=== PATIENT | male | born 1940 | race Caucasian/White ===

== ENCOUNTER 2016-11-11 07:34 | Day surgery (SDC) | payer MEDICARE ==
[~2016-11-11 07:34] MED LIST: Cefuroxime 10 MG/ML SYRINGE EYELF SCH; Lidocaine 1% PF 2 ML SDV INJECT SCH; Pilocarpine 4% Ophth Soln 15 ML Bot EYELF SCH
--- NOTE | 2016-11-11 09:20 | PCM.PREANE ---
Preanesthetic Assessment - Procedure Proposed Procedure: Cataract extraction left eye. - Anesthesia/Transfusion/Family Hx Anesthesia History: Prior Anesthesia Without Reaction Family History of Anesthesia Reaction: No Transfusion History: No Prior Transfusion(s) Intubation History: Unknown - Review of Systems General: No Symptoms Pulmonary: No Symptoms (Patient does not remember the last time he used him inhaler.) Cardiovascular: No Symptoms (NSTEMI) Gastrointestinal: No Symptoms Neurological: No Symptoms Other: Reports: None - Physical Assessment NPO Status Date: 11/10/16 NPO Status Time: 22:00 Pulse: 64 O2 Sat by Pulse Oximetry: 100 Blood Pressure: 103/69 Height: 1.73 m Weight: 72.575 kg ASA Class: 2 Mental Status: Alert & Oriented x3 Dentition: Reports: Normal Dentition, Caries Thyro-Mental Finger Breadths: 3 Mouth Opening Finger Breadths: 3 ROM/Head Extension: Full Lungs: Clear to Auscultation, Normal Respiratory Effort Cardiovascular: Regular Rate, Regular Rhythm - Allergies Allergies/Adverse Reactions: Allergies Allergy/AdvReac Type Severity Reaction Status Date / Time No Known Allergies Allergy Verified 11/10/16 14:02 - Anesthesia Plan Beta Naye: Metoprolol Med Last Dose Date: 11/10/16 Med Last Dose Time: 16:00 - Acknowledgements Anesthesia Type Planned: MAC Pt an Appropriate Candidate for the Planned Anesthesia: Yes Alternatives and Risks of Anesthesia Discussed w Pt/Guardian: Yes Pt/Guardian Understands and Agrees with Anesthesia Plan: Yes PreAnesthesia Questionnaire - Past Health History Medical/Surgical History: Denies Medical/Surgical History Cardiovascular History: Reports: None, CAD, [place] (NSTEMI), Stents (Stents in 2013. ) - Past Surgical History Cardiovascular Surgical History: Reports: Coronary Artery Stent (2013) Other Cardiovascular Surgeries/Procedures: while triageing pt noted that pt ht rate was bouncing around, placed pt on cardiac n\ - SUBSTANCE USE Smoking Status *Q: Current Every Day Smoker Tobacco Use Within Last Twelve Months: Cigarettes Recreational Drug Use History: No - HOME MEDS Home Medications: Home Meds Aspirin [Children's Aspirin] 81 mg PO DAILY 11/10/16 [History] Finasteride 5 mg PO DAILY 11/10/16 [History] Fluticasone Propionate [Flovent HFA 220 MCG] 1 puff INH ASDIRECTED 11/10/16 [ History] Metoprolol Succinate 100 mg PO DAILY 11/10/16 [History] - CURRENT (IN HOUSE) MEDS Current Meds: Current Medications Brimonidine Tartrate (Alphagan 0.2% Ophth Soln) 0 ml EYELF ASDIRECTED BRANDIE Stop: 11/11/16 18:00 Cefuroxime Sodium (Zinacef) 0 mg EYELF ASDIRECTED BRANDIE Stop: 11/11/16 18:00 Lidocaine HCl (Xylocaine-Mpf 1%) 1 ml INJECT ASDIRECTED BRANDIE Stop: 11/11/16 18:00 Phenylephrine HCl (Yaya-Synephrine 2.5% Ophth Soln) 0 ml EYELF ASDIRECTED BRANDIE Stop: 11/11/16 18:00 Pilocarpine HCl (Pilocar 4% Ophth Soln) 0 ml EYELF ASDIRECTED BRANDIE Stop: 11/11/16 18:00 Polymyxin/Trimethoprim Sulfate (Polytrim Ophth Soln) 0 ml EYELF ASDIRECTED BRANDIE Stop: 11/11/16 18:00 Tetracaine HCl (Tetracaine 0.5% Steri-Unit Violet) 0 ml EYELF ASDIRECTED BRANDIE Stop: 11/11/16 18:00 Tropicamide (Mydriacyl 1% Ophth Soln) 0 ml EYELF ASDIRECTED BRANDIE Stop: 11/11/16 18:00
[2016-11-11] MEDS: Polymyxin B/Trimethoprim 10 ML Bottle EYELF SCH ×3 (09:28→11:16)
[2016-11-11] MEDS: Brimonidine 0.2% Ophth Soln 5 ML Bottle EYELF SCH ×3 (09:35→11:15)
[2016-11-11] MEDS: Phenylephrine 2.5% Ophth Soln 2 ML Bot EYELF SCH ×5 (09:40→10:58)
[2016-11-11] MEDS: Tetracaine HCl/PF 0.5% 4 ML Bottle EYELF SCH ×2 (10:31→11:07)
--- NOTE | 2016-11-11 11:17 | PCM48HPAN ---
Post Anesthesia Note - EVALUATION WITHIN 48HRS OF ANESTHETIC Vital Signs in Normal Range: Yes Patient Participated in Evaluation: Yes Respiratory Function Stable: Yes Airway Patent: Yes Cardiovascular Function Stable: Yes Hydration Status Stable: Yes Pain Control Satisfactory: Yes Nausea and Vomiting Control Satisfactory: Yes Mental Status Recovered: Yes
[2016-11-11 11:32] VITALS: BP 123/70
== END 2016-11-11 11:27 | disposition home or self-care (01) ==
LOC: JD.SDS 07:34
PROVIDERS: ATTEND Ophthalmology
PROC: 08RK3JZ Replacement of Left Lens with Synthetic Substitute, Percutaneous Approach (ICD-10-PCS; principal; 2016-11-11)
DX: H25.812 Combined forms of age-related cataract, left eye (principal); Z95.5 Presence of coronary angioplasty implant and graft; Z98.890 Other specified postprocedural states; Z79.82 Long term (current) use of aspirin; Z79.899 Other long term (current) drug therapy; Z79.51 Long term (current) use of inhaled steroids
CPT/HCPCS: 66984; A9270; J0697; C1780

== ENCOUNTER 2016-12-09 08:42 | Day surgery (SDC) | payer MEDICARE ==
[~2016-12-09 08:42] MED LIST changes: -Cefuroxime 10 MG/ML SYRINGE EYELF SCH; +Cefuroxime 10 MG/ML SYRINGE EYERT SCH; -Pilocarpine 4% Ophth Soln 15 ML Bot EYELF SCH; +Pilocarpine 4% Ophth Soln 15 ML Bot EYERT SCH
[2016-12-09] MEDS: Polymyxin B/Trimethoprim 10 ML Bottle EYERT SCH ×3 (10:00→11:39)
[2016-12-09] MEDS: Brimonidine 0.2% Ophth Soln 5 ML Bottle EYERT SCH ×3 (10:06→11:39)
[2016-12-09] MEDS: Phenylephrine 2.5% Ophth Soln 2 ML Bot EYERT SCH ×5 (10:10→11:23)
--- NOTE | 2016-12-09 10:41 | PCM.PREANE ---
Preanesthetic Assessment - Procedure Proposed Procedure: right eye cataract extraction with IOL - Anesthesia/Transfusion/Family Hx Anesthesia History: Prior Anesthesia Without Reaction Family History of Anesthesia Reaction: No Transfusion History: No Prior Transfusion(s) Intubation History: Unknown - Review of Systems General: No Symptoms Pulmonary: No Symptoms Cardiovascular: Other (heart stent 2 years ago) Gastrointestinal: No Symptoms Neurological: No Symptoms Other: Reports: None - Physical Assessment NPO Status Date: 12/08/16 NPO Status Time: 19:00 O2 Sat by Pulse Oximetry: 100 Respiratory Rate: 16 Vital Signs: Last Vital Signs Temp 36.5 C 12/09/16 09:55 Pulse 63 12/09/16 09:55 Resp 16 12/09/16 09:55 BP 131/72 12/09/16 09:55 Pulse Ox 100 12/09/16 09:55 Weight: 72.575 kg ASA Class: 2 Airway Class: Mallampati = 1 Dentition: Reports: Normal Dentition Thyro-Mental Finger Breadths: 3 Mouth Opening Finger Breadths: 3 ROM/Head Extension: Full Lungs: Clear to Auscultation, Normal Respiratory Effort Cardiovascular: Regular Rate, Regular Rhythm - Allergies Allergies/Adverse Reactions: Allergies Allergy/AdvReac Type Severity Reaction Status Date / Time No Known Allergies Allergy Verified 12/08/16 14:32 - Blood Blood Available: No Product(s) Available: None - Anesthesia Plan Pre-Op Medication Ordered: None - Acknowledgements Anesthesia Type Planned: MAC Pt an Appropriate Candidate for the Planned Anesthesia: Yes Alternatives and Risks of Anesthesia Discussed w Pt/Guardian: Yes Pt/Guardian Understands and Agrees with Anesthesia Plan: Yes PreAnesthesia Questionnaire - Past Health History Medical/Surgical History: Denies Medical/Surgical History Cardiovascular History: Reports: None, CAD, [place] (NSTEMI), Stents (Stents in 2013. ) - Past Surgical History Cardiovascular Surgical History: Reports: Coronary Artery Stent (2013) Other Cardiovascular Surgeries/Procedures: while triageing pt noted that pt ht rate was bouncing around, placed pt on cardiac n\ - SUBSTANCE USE Smoking Status *Q: Current Every Day Smoker (0.5ppd for 40 years) Tobacco Use Within Last Twelve Months: Cigarettes Second Hand Smoke Exposure: No Recreational Drug Use History: No - HOME MEDS Home Medications: Home Meds Aspirin [Children's Aspirin] 81 mg PO DAILY 11/10/16 [History] Finasteride 5 mg PO DAILY 11/10/16 [History] Fluticasone Propionate [Flovent HFA 220 MCG] 1 puff INH ASDIRECTED 11/10/16 [ History] Metoprolol Succinate 100 mg PO DAILY 11/10/16 [History] - CURRENT (IN HOUSE) MEDS Current Meds: Current Medications Brimonidine Tartrate (Alphagan 0.2% Ophth Soln) 0 ml EYERT ASDIRECTED BRANDIE Stop: 12/09/16 18:00 Last Admin: 12/09/16 10:06 Dose: 1 drop Cefuroxime Sodium (Zinacef) 0 mg EYERT ASDIRECTED BRANDIE Stop: 12/09/16 18:00 Lidocaine HCl (Xylocaine-Mpf 1%) 1 ml INJECT ASDIRECTED BRANDIE Stop: 12/09/16 18:00 Phenylephrine HCl (Yaya-Synephrine 2.5% Ophth Soln) 0 ml EYERT ASDIRECTED BRANDIE Stop: 12/09/16 18:00 Last Admin: 12/09/16 10:30 Dose: 1 drop Pilocarpine HCl (Pilocar 4% Ophth Soln) 0 ml EYERT ASDIRECTED BRANDIE Stop: 12/09/16 18:00 Polymyxin/Trimethoprim Sulfate (Polytrim Ophth Soln) 0 ml EYERT ASDIRECTED BRANDIE Stop: 12/09/16 18:00 Last Admin: 12/09/16 10:00 Dose: 1 drop Tetracaine HCl (Tetracaine 0.5% Steri-Unit Violet) 0 ml EYERT ASDIRECTED BRANDIE Stop: 12/09/16 18:00 Tropicamide (Mydriacyl 1% Ophth Soln) 0 ml EYERT ASDIRECTED BRANDIE Stop: 12/09/16 18:00 Last Admin: 12/09/16 10:25 Dose: 1 drop
[2016-12-09] MEDS: Tetracaine HCl/PF 0.5% 4 ML Bottle EYERT SCH ×2 (11:08→11:32)
[2016-12-09 11:50] VITALS: BP 133/78
== END 2016-12-09 11:48 | disposition home or self-care (01) ==
LOC: JD.SDS 08:42
PROVIDERS: ATTEND Ophthalmology
DX: H25.811 Combined forms of age-related cataract, right eye (principal); H52.31 Anisometropia; H35.3131 Nonexudative age-related macular degeneration, bilateral, early dry stage; H35.363 Drusen (degenerative) of macula, bilateral; I25.10 Atherosclerotic heart disease of native coronary artery without angina pectoris; I25.2 Old myocardial infarction; F17.210 Nicotine dependence, cigarettes, uncomplicated; Z98.42 Cataract extraction status, left eye; Z96.1 Presence of intraocular lens; Z95.5 Presence of coronary angioplasty implant and graft; Z79.82 Long term (current) use of aspirin; Z79.899 Other long term (current) drug therapy
CPT/HCPCS: 66984; A9270; C1780; J0697

== ENCOUNTER 2020-04-01 17:28 | Inpatient (IN) | payer MEDICARE ==
[2020-04-01] MEDS ORDERED: Diltiazem 50 MG/10 ML SDV ONE (17:38)
[2020-04-01] MEDS ORDERED: Sodium Chloride 0.9% 10 ML Syringe FLUSH PRN (17:39)
[2020-04-01] MEDS ORDERED: Diltiazem 50 MG/10 ML SDV IVPUSH ONE (17:40)
[2020-04-01] MEDS ORDERED: Sodium Chloride 0.9% 1,000 ML IV SCH (17:45)
--- NOTE | 2020-04-01 17:47 | EDM.PDOC ---
ED HPI GENERAL MEDICAL PROBLEM - General Chief Complaint: Cardiovascular Problem Stated Complaint: [facility] Time Seen by Provider: 04/01/20 17:39 Source of Information: Reports: Patient, EMS History Limitations: Reports: No Limitations - History of Present Illness INITIAL COMMENTS - FREE TEXT/NARRATIVE: The patient presents by [facility] for tachycardia. The patient said this all started about 4 days ago. He said he could feel his heart racing but tonight it got worse when he took a shower. EMS had his heart rate as high as 210. He was in the 160s when he arrived here. He has no chest pain. He had a cough for about 4 days. He feels a little short of breath. He has a history of GA with stent a few years ago. He has no fever, chills, abdominal pain, nausea or vomiting. Onset: Gradual Duration: Day(s): (4) Severity: Moderate Improves with: Reports: None Worsens with: Reports: None Associated Symptoms: Reports: Cough, Shortness of Breath. Denies: Chest Pain, Fever/Chills, Headaches, Nausea/Vomiting - Related Data Allergies Allergy/AdvReac Type Severity Reaction Status Date / Time No Known Allergies Allergy Verified 04/01/20 17:47 Home Meds: Home Meds Aspirin [Children's Aspirin] 81 mg PO DAILY 11/10/16 [History] Finasteride 5 mg PO DAILY 11/10/16 [History] Fluticasone Propionate [Flovent HFA 220 MCG] 1 puff INH ASDIRECTED 11/10/16 [History] Metoprolol Succinate 100 mg PO DAILY 11/10/16 [History] Past Medical History - Past Health History Medical/Surgical History: Denies Medical/Surgical History Cardiovascular History: Reports: None, CAD, [place] (NSTEMI), Stents (Stents in 2013.) - Past Surgical History Cardiovascular Surgical History: Reports: Coronary Artery Stent (2013) Other Cardiovascular Surgeries/Procedures: while triageing pt noted that pt ht rate was bouncing around, placed pt on cardiac n\ ED ROS GENERAL - Review of Systems Review Of Systems: See Below Constitutional: Reports: No Symptoms HEENT: Reports: No Symptoms Respiratory: Reports: Shortness of Breath, Cough Cardiovascular: Reports: Palpitations. Denies: Chest Pain Endocrine: Reports: No Symptoms GI/Abdominal: Reports: No Symptoms : Reports: No Symptoms Musculoskeletal: Reports: No Symptoms ED EXAM, GENERAL - Physical Exam Exam: See Below Exam Limited By: No Limitations General Appearance: Alert, No Apparent Distress Ears: Normal External Exam Nose: Normal Inspection Head: Atraumatic, Normocephalic Neck: Normal Inspection Respiratory/Chest: No Respiratory Distress, Lungs Clear, Normal Breath Sounds Cardiovascular: No Edema, No Murmur, Tachycardia GI/Abdominal: Soft, Non-Tender, No Organomegaly, No Mass Back Exam: Normal Inspection Extremities: Normal Inspection #1 Interpretation EKG Date: 04/01/20 Time: 17:40 Rhythm: A-Fib Rate (Beats/Min): 170 [place]: RAD-Right [place] Deviation P-Wave: Absent QRS: Normal ST-T: Depressed (lalteral leads due to rate) QT: Prolonged EKG Interpretation Comments: PVC Course - Vital Signs Last Recorded V/S: Last Vital Signs Temp 97 F 04/01/20 17:33 Pulse 133 H 04/01/20 18:30 Resp 20 04/01/20 18:30 BP 100/88 04/01/20 18:30 Pulse Ox 97 04/01/20 18:30 - Orders/Labs/Meds Orders: Active Orders 24 hr Category Date Time Status Cardiac Monitoring [RC] . DIRECTED Care 04/01/20 17:39 Active EKG Documentation Completion [RC] STAT Care 04/01/20 17:40 Active Oxygen Therapy [RC] PRN Care 04/01/20 17:39 Active Peripheral IV Care [RC] . DIRECTED Care 04/01/20 17:40 Active Chest 1V Frontal [CR] Stat Exams 04/01/20 17:40 Taken CULTURE BLOOD [BC] Stat Lab 04/01/20 18:37 Ordered CULTURE BLOOD [BC] Stat Lab 04/01/20 18:37 Ordered LACTIC ACID [CHEM] Stat Lab 04/01/20 18:37 Ordered Diltiazem [Cardizem] 100 mg Med 04/01/20 17:45 Active Sodium Chloride 0.9% [Normal Saline] 100 ml IV TITRATE Sodium Chloride 0.9% [Normal Saline] 1,000 ml Med 04/01/20 17:45 Active IV ASDIRECTED Sodium Chloride 0.9% [Saline Flush] Med 04/01/20 17:39 Active 10 ml FLUSH ASDIRECTED PRN cefTRIAXone [Rocephin] 2 gm Med 04/01/20 18:40 Active Sodium Chloride 0.9% [Normal Saline] 100 ml IV ONETIME Blood Culture x2 Reflex Set [OM.PC] Stat Oth 04/01/20 18:37 Ordered Peripheral IV Insertion Adult [OM.PC] Stat Oth 04/01/20 17:39 Ordered Medication Orders Diltiazem HCl 100 mg/ Sodium (Chloride) 100 mls @ 10 mls/hr IV TITRATE BRANDIE; Protocol Last Titration: 04/01/20 18:30 Dose: 5 mg/hr, 5 mls/hr Documented by: Admin: 04/01/20 17:48 Dose: 10 mg/hr, 10 mls/hr Documented by: ANASTASIYA Sodium Chloride (Normal Saline) 1,000 mls @ 125 mls/hr IV ASDIRECTED BRANDIE Last Infusion: 04/01/20 18:30 Dose: 999 mls/hr Documented by: Admin: 04/01/20 17:52 Dose: 125 mls/hr Documented by: ANASTASIYA Ceftriaxone Sodium 2 gm/ (Sodium Chloride) 100 mls @ 200 mls/hr IV ONETIME ONE Stop: 04/01/20 19:09 Sodium Chloride (Saline Flush) 10 ml FLUSH ASDIRECTED PRN PRN Reason: Keep Vein Open Last Admin: 04/01/20 17:52 Dose: 10 ml Documented by: ANASTASIYA Labs: Laboratory Tests 04/01/20 04/01/20 04/01/20 Range/Units 17:30 17:55 18:10 WBC 6.19 (4.23-9.07) K/mm3 RBC 5.42 (4.63-6.08) M/mm3 Hgb 16.6 D (13.7-17.5) gm/dl Hct 52.2 H (40.1-51.0) % MCV 96.3 H D (79.0-92.2) fl MCH 30.6 (25.7-32.2) pg MCHC 31.8 L (32.2-35.5) g/dl RDW Std Deviation 70.1 H (35.1-43.9) fL Plt Count 128 L (163-337) K/mm3 Neut % (Auto) 53.5 (34.0-67.9) % Lymph % (Auto) 35.1 (21.8-53.1) % [place] % (Auto) 8.9 (5.3-12.2) % Eos % (Auto) 1.0 (0.8-7.0) Baso % (Auto) 1.0 (0.1-1.2) % Neut # (Auto) 0.50 L (1.78-5.38) K/mm3 Lymph # (Auto) 2.17 (1.32-3.57) K/mm3 [place] # (Auto) 0.55 (0.30-0.82) K/mm3 Eos # (Auto) 0.06 (0.04-0.54) K/mm3 Baso # (Auto) 0.06 (0.01-0.08) K/mm3 Manual Slide Review Not Reportable Sodium (136-145) mEq/L Potassium (3.5-5.1) mEq/L Chloride (98-107) mEq/L Carbon Dioxide (21-32) mEq/L Anion Gap (5-15) BUN (7-18) mg/dL Creatinine (0.7-1.3) mg/dL Est Cr Clr Drug Dosing mL/min Estimated GFR (MDRD) (>60) mL/min BUN/Creatinine Ratio (14-18) Glucose (83-115) mg/dL Calcium (8.5-10.1) mg/dL Magnesium (1.8-2.4) mg/dl Total Bilirubin (0.2-1.0) mg/dL AST (15-37) U/L ALT (16-63) U/L Alkaline Phosphatase (46-116) U/L Troponin I (0.00-0.056) ng/mL C-Reactive Protein (<1.0) mg/dL Total Protein (6.4-8.2) g/dl Albumin (3.4-5.0) g/dl Globulin gm/dL Albumin/Globulin Ratio (1-2) TSH 3rd Generation (0.358-3.74) uIU/mL SARS-CoV-2 RNA (CHAU) Negative (NEGATIVE) 04/01/20 04/01/20 Range/Units 18:10 18:10 WBC (4.23-9.07) K/mm3 RBC (4.63-6.08) M/mm3 Hgb (13.7-17.5) gm/dl Hct (40.1-51.0) % MCV (79.0-92.2) fl MCH (25.7-32.2) pg MCHC (32.2-35.5) g/dl RDW Std Deviation (35.1-43.9) fL Plt Count (163-337) K/mm3 Neut % (Auto) (34.0-67.9) % Lymph % (Auto) (21.8-53.1) % [place] % (Auto) (5.3-12.2) % Eos % (Auto) (0.8-7.0) Baso % (Auto) (0.1-1.2) % Neut # (Auto) (1.78-5.38) K/mm3 Lymph # (Auto) (1.32-3.57) K/mm3 [place] # (Auto) (0.30-0.82) K/mm3 Eos # (Auto) (0.04-0.54) K/mm3 Baso # (Auto) (0.01-0.08) K/mm3 Manual Slide Review Sodium 140 (136-145) mEq/L Potassium 4.4 (3.5-5.1) mEq/L Chloride 103 (98-107) mEq/L Carbon Dioxide 20 L (21-32) mEq/L Anion Gap 21.4 H (5-15) BUN 36 H (7-18) mg/dL Creatinine 1.5 H (0.7-1.3) mg/dL Est Cr Clr Drug Dosing 37.76 mL/min Estimated GFR (MDRD) 45 (>60) mL/min BUN/Creatinine Ratio 24.0 H (14-18) Glucose 144 H (83-115) mg/dL Calcium 9.1 (8.5-10.1) mg/dL Magnesium 2.1 (1.8-2.4) mg/dl Total Bilirubin 2.5 H (0.2-1.0) mg/dL AST 52 H (15-37) U/L ALT 72 H (16-63) U/L Alkaline Phosphatase 116 (46-116) U/L Troponin I 0.022 (0.00-0.056) ng/mL C-Reactive Protein 1.4 H* (<1.0) mg/dL Total Protein 6.7 (6.4-8.2) g/dl Albumin 3.5 (3.4-5.0) g/dl Globulin 3.2 gm/dL Albumin/Globulin Ratio 1.1 (1-2) TSH 3rd Generation 3.839 H (0.358-3.74) uIU/mL SARS-CoV-2 RNA ([facility]) (NEGATIVE) Meds: Medications Generic Name Dose Route Start Last Admin Trade Name Freq PRN Reason Stop Dose Admin Diltiazem HCl 100 mg/ Sodium 100 mls @ 10 mls/hr 04/01/20 17:45 04/01/20 18:30 Chloride IV 5 mg/hr TITRATE BRANDIE 5 mls/hr Titration Protocol 10 MG/HR Sodium Chloride 1,000 mls @ 125 mls/hr 04/01/20 17:45 04/01/20 18:30 Normal Saline IV 999 mls/hr ASDIRECTED BRANDIE Infusion Ceftriaxone Sodium 2 gm/ 100 mls @ 200 mls/hr 04/01/20 18:40 Sodium Chloride IV 04/01/20 19:09 ONETIME ONE Sodium Chloride 10 ml 04/01/20 17:39 04/01/20 17:52 Saline Flush FLUSH 10 ml ASDIRECTED PRN Administration Keep Vein Open Discontinued Medications Generic Name Dose Route Start Last Admin Trade Name Freq PRN Reason Stop Dose Admin Diltiazem HCl Confirm 04/01/20 17:38 04/01/20 17:52 Cardizem Administered 04/01/20 17:39 Not Given Dose 50 mg .ROUTE .STK-MED ONE Diltiazem HCl 10 mg 04/01/20 17:40 04/01/20 17:42 Cardizem IVPUSH 04/01/20 17:41 10 mg ONETIME ONE Administration - Re-Assessments/Exams Free Text/Narrative Re-Assessment/Exam: 04/01/20 17:48 I ordered an IV NS at 125mL/hr, cardizem bolus of 10mg IV, cardizem drip at 10mg/hr, EKG, CXR labs and COVID 19. His EKG shows atrial fibrillation at a rate of 170 with no acute changes. 04/01/20 18:41 His CXR I thought had an infiltrate in the right infrahilar area. I had [facility] look at it and they felt the right infrahilar findings are felt to be related to crowding of bronchovascular structures, however developing airspace disease should be entertained in the appropriate clinical setting. The patient said about a week ago he started with nausea and vomiting and 4 days ago he started coughing. The cough is productive. He has not been able to eat or drink anything for days. His heart rate did come down some to the 140s but his BP did go to 90 systolic. I ordered a NS bolus and lower the cardizem drip to 5mg/hr. I have ordered lactic acid, blood cultures and rocephin 2 grams. I feel he has pneumonia in the right perihilar region. 04/01/20 19:03 His CBC looks good. His anion gap was elevated at 21.14. His creatinine was elevated at 1.5. His glucose was 144. His total bili was 2.5. His AST was elevated at 52. His ALT was elevated at 72. His troponin was negative. His CRP is elevated at 1.4. His TSH was elevated at 3.839. His COVID 19 is negative. I feel he has pneumonia and new onset atrial fibrillation. I called Dr Oseguera our hospitalist and he agreed to the admission. Departure - Departure Time of Disposition: 19:05 Disposition: Admitted As Inpatient 67 Condition: Fair Clinical Impression: Atrial fibrillation with RVR Pneumonia Qualifiers: Pneumonia type: due to unspecified organism Laterality: right Lung location: middle lobe of lung Qualified Code(s): J18.9 - Pneumonia, unspecified organism Referrals: Irina Willett [employer] [Primary Care Provider] - Forms: ED Department Discharge Sepsis Event Note (ED) - Evaluation Sepsis Screening Result: No Definite Risk - Focused Exam Vital Signs: Vital Signs Temp Pulse Resp BP Pulse Ox 04/01/20 18:30 133 H 20 100/88 97 04/01/20 17:33 97 F 166 H 23 H 114/83 - My Orders Last 24 Hours: My Active Orders 04/01/20 17:39 Cardiac Monitoring [RC] . DIRECTED Oxygen Therapy [RC] PRN Sodium Chloride 0.9% [Saline Flush] 10 ml FLUSH ASDIRECTED PRN Peripheral IV Insertion Adult [OM.PC] Stat 04/01/20 17:40 EKG Documentation Completion [RC] STAT Peripheral IV Care [RC] . DIRECTED Chest 1V Frontal [CR] Stat 04/01/20 17:45 Diltiazem [Cardizem] 100 mg Sodium Chloride 0.9% [Normal Saline] 100 ml IV TITRATE Sodium Chloride 0.9% [Normal Saline] 1,000 ml IV ASDIRECTED 04/01/20 18:37 CULTURE BLOOD [BC] Stat CULTURE BLOOD [BC] Stat LACTIC ACID [CHEM] Stat Blood Culture x2 Reflex Set [OM.PC] Stat 04/01/20 18:40 cefTRIAXone [Rocephin] 2 gm Sodium Chloride 0.9% [Normal Saline] 100 ml IV ONETIME - Assessment/Plan Last 24 Hours: My Active Orders 04/01/20 17:39 Cardiac Monitoring [RC] . DIRECTED Oxygen Therapy [RC] PRN Sodium Chloride 0.9% [Saline Flush] 10 ml FLUSH ASDIRECTED PRN Peripheral IV Insertion Adult [OM.PC] Stat 04/01/20 17:40 EKG Documentation Completion [RC] STAT Peripheral IV Care [RC] . DIRECTED Chest 1V Frontal [CR] Stat 04/01/20 17:45 Diltiazem [Cardizem] 100 mg Sodium Chloride 0.9% [Normal Saline] 100 ml IV TITRATE Sodium Chloride 0.9% [Normal Saline] 1,000 ml IV ASDIRECTED 04/01/20 18:37 CULTURE BLOOD [BC] Stat CULTURE BLOOD [BC] Stat LACTIC ACID [CHEM] Stat Blood Culture x2 Reflex Set [OM.PC] Stat 04/01/20 18:40 cefTRIAXone [Rocephin] 2 gm Sodium Chloride 0.9% [Normal Saline] 100 ml IV ONETIME
[2020-04-01] MEDS: Diltiazem 100 MG in Sodium Chloride 0.9% 100 ML IV SCH (17:48)
[2020-04-01] MEDS ORDERED: cefTRIAXone 2 GM in Sodium Chloride 0.9% 100 ML IV ONE (18:40)
[2020-04-01 18:43] LABS: CORONAVIRUS COVID-19 NAA NEGATIVE (NEGATIVE)
[2020-04-01] MEDS ORDERED: Docusate Sodium 100 MG Cap PO PRN (19:37)
[2020-04-01] MEDS ORDERED: Promethazine 12.5 MG in Sodium Chloride 0.9% 50 ML IV PRN (19:37)
[2020-04-01] MEDS ORDERED: Morphine 2 MG/ML SYRINGE IVPUSH PRN (19:37)
[2020-04-01] MEDS ORDERED: Acetaminophen 325 MG Tab PO PRN (19:37)
[2020-04-01] MEDS ORDERED: oxyCODONE 5 MG Tab PO PRN (19:37)
[2020-04-01] MEDS ORDERED: Albuterol/Ipratropium 3.0-0.5 MG/3 ML Neb Soln NEB PRN (19:37)
[2020-04-01] MEDS ORDERED: Lactated Ringers 1,000 ML IV SCH (19:45)
[2020-04-01] MEDS ORDERED: hydrALAZINE 20 MG/ML SDV IVPUSH PRN (19:55)
--- NOTE | 2020-04-01 20:04 | PCM.HP.2 ---
H&P History of Present Illness - General Date of Service: 04/01/20 Admit Problem/Dx: Admission Diagnosis/Problem Admission Diagnosis/Problem Atrial fibrillation Source of Information: Patient - History of Present Illness Initial Comments - Free Text/Narative: She is a 79-year-old male with a history of CAD status post stenting in 2014 who was brought to the ER due to heart racing and shortness of breath for 4 days. As per patient, he has been feeling his heart beating too fast, coughing with a small amount of light yellowish sputum and having shortness of breath over the past 4 days. Patient called EMS who found patient had tachycardia, 210. In the ER, his heart rate was 160. Otherwise the patient denied headaches, dizziness, nausea, vomiting, fever, chills, chest pain, abdominal pain or dysuria. Chest x-ray showed cardiomegaly and right side of the bronchitis. Lactic acid 3.6. IV resuscitation and diltiazem drip were initiated. Onset of Symptoms: Reports: Gradual Duration of Symptoms: Reports: Day(s): Severity: Severe Associated Symptoms: Reports: Cough - Related Data Allergies/Adverse Reactions: Allergies Allergy/AdvReac Type Severity Reaction Status Date / Time No Known Allergies Allergy Verified 04/01/20 22:54 Home Medications: Home Meds Aspirin 325 mg PO DAILY 04/01/20 [History] Past Medical History - Past Health History Medical/Surgical History: Denies Medical/Surgical History Cardiovascular History: Reports: None, CAD, [place], Stents - Past Surgical History Cardiovascular Surgical History: Reports: Coronary Artery Stent (2013) Other Cardiovascular Surgeries/Procedures: while triageing pt noted that pt ht rate was bouncing around, placed pt on cardiac n\ Social & Family History - Tobacco Use Tobacco Use Status *Q: Current Every Day Tobacco User Years of Tobacco use: 20 Packs/Tins Daily: 1 - Caffeine Use Caffeine Use: Reports: Coffee - Recreational Drug Use Recreational Drug Use: No H&P Review of Systems - Review of Systems: Review Of Systems: See Below (Positive for heart racing, cough and shortness of breath. All other systems were reviewed and negative.) Exam - Exam Exam: See Below - Vital Signs Vital Signs: Last Vital Signs Temp 36.1 C 04/01/20 17:33 Pulse 150 H 04/01/20 19:45 Resp 20 04/01/20 19:35 BP 110/78 02/07/21 19:35 Pulse Ox 98 04/01/20 19:35 Weight: 65.771 kg - Exam Physical Exam Comments:: Physical Exam: General: No acute distress HEENT: Conjunctiva Clear, EOMI, Mucosa Moist & [place] Neck: Supple, Trachea Midline, NO JVD Lungs: Diminished breathing sounds, normal Respiratory Effort Cardiovascular: Regular Rate, Regular Rhythm GI/Abdominal Exam: Normal Bowel Sounds, Soft, Non-Tender, No Organomegaly, No Distention, No Abnormal Bruit, No Mass Extremities: Normal Inspection, Non-Tender, No Pedal Edema, Normal Capillary Refill Skin: Warm, Dry, Intact Neurology: A+O x 3, no focal neurological deficits Psychiatric: Normal Mood - Patient Data Lab Results Last 24 hrs: Laboratory Results - last 24 hr 04/01/20 04/01/20 04/01/20 Range/Units 17:30 17:55 18:10 WBC 6.19 (4.23-9.07) K/mm3 RBC 5.42 (4.63-6.08) M/mm3 Hgb 16.6 D (13.7-17.5) gm/dl Hct 52.2 H (40.1-51.0) % MCV 96.3 H D (79.0-92.2) fl MCH 30.6 (25.7-32.2) pg MCHC 31.8 L (32.2-35.5) g/dl RDW Std Deviation 70.1 H (35.1-43.9) fL Plt Count 128 L (163-337) K/mm3 Neut % (Auto) 53.5 (34.0-67.9) % Lymph % (Auto) 35.1 (21.8-53.1) % [place] % (Auto) 8.9 (5.3-12.2) % Eos % (Auto) 1.0 (0.8-7.0) Baso % (Auto) 1.0 (0.1-1.2) % Neut # (Auto) 0.50 L (1.78-5.38) K/mm3 Lymph # (Auto) 2.17 (1.32-3.57) K/mm3 [place] # (Auto) 0.55 (0.30-0.82) K/mm3 Eos # (Auto) 0.06 (0.04-0.54) K/mm3 Baso # (Auto) 0.06 (0.01-0.08) K/mm3 Manual Slide Review Abnormal smear Sodium 140 (136-145) mEq/L Potassium 4.4 (3.5-5.1) mEq/L Chloride 103 (98-107) mEq/L Carbon Dioxide 20 L (21-32) mEq/L Anion Gap 21.4 H (5-15) BUN 36 H (7-18) mg/dL Creatinine 1.5 H (0.7-1.3) mg/dL Est Cr Clr Drug Dosing 37.76 mL/min Estimated GFR (MDRD) 45 (>60) mL/min BUN/Creatinine Ratio 24.0 H (14-18) Glucose 144 H (83-115) mg/dL Lactic Acid (0.4-2.0) mmol/L Calcium 9.1 (8.5-10.1) mg/dL Magnesium 2.1 (1.8-2.4) mg/dl Total Bilirubin 2.5 H (0.2-1.0) mg/dL AST 52 H (15-37) U/L ALT 72 H (16-63) U/L Alkaline Phosphatase 116 (46-116) U/L Troponin I 0.022 (0.00-0.056) ng/mL C-Reactive Protein (<1.0) mg/dL Total Protein 6.7 (6.4-8.2) g/dl Albumin 3.5 (3.4-5.0) g/dl Globulin 3.2 gm/dL Albumin/Globulin Ratio 1.1 (1-2) TSH 3rd Generation 3.839 H (0.358-3.74) uIU/mL SARS-CoV-2 RNA ([facility]) Negative (NEGATIVE) 04/01/20 04/01/20 Range/Units 18:10 19:10 WBC (4.23-9.07) K/mm3 RBC (4.63-6.08) M/mm3 Hgb (13.7-17.5) gm/dl Hct (40.1-51.0) % MCV (79.0-92.2) fl MCH (25.7-32.2) pg MCHC (32.2-35.5) g/dl RDW Std Deviation (35.1-43.9) fL Plt Count (163-337) K/mm3 Neut % (Auto) (34.0-67.9) % Lymph % (Auto) (21.8-53.1) % [place] % (Auto) (5.3-12.2) % Eos % (Auto) (0.8-7.0) Baso % (Auto) (0.1-1.2) % Neut # (Auto) (1.78-5.38) K/mm3 Lymph # (Auto) (1.32-3.57) K/mm3 [place] # (Auto) (0.30-0.82) K/mm3 Eos # (Auto) (0.04-0.54) K/mm3 Baso # (Auto) (0.01-0.08) K/mm3 Manual Slide Review Sodium (136-145) mEq/L Potassium (3.5-5.1) mEq/L Chloride (98-107) mEq/L Carbon Dioxide (21-32) mEq/L Anion Gap (5-15) BUN (7-18) mg/dL Creatinine (0.7-1.3) mg/dL Est Cr Clr Drug Dosing mL/min Estimated GFR (MDRD) (>60) mL/min BUN/Creatinine Ratio (14-18) Glucose (83-115) mg/dL Lactic Acid 3.6 H* (0.4-2.0) mmol/L Calcium (8.5-10.1) mg/dL Magnesium (1.8-2.4) mg/dl Total Bilirubin (0.2-1.0) mg/dL AST (15-37) U/L ALT (16-63) U/L Alkaline Phosphatase (46-116) U/L Troponin I (0.00-0.056) ng/mL C-Reactive Protein 1.4 H* (<1.0) mg/dL Total Protein (6.4-8.2) g/dl Albumin (3.4-5.0) g/dl Globulin gm/dL Albumin/Globulin Ratio (1-2) TSH 3rd Generation (0.358-3.74) uIU/mL SARS-CoV-2 RNA ([facility]) (NEGATIVE) Result Diagrams: 04/02/20 01:34 04/02/20 01:34 Sepsis Event Note - Evaluation Sepsis Screening Result: No Definite Risk Current Stage of Sepsis: Severe Sepsis Possible Source of Sepsis: Pulmonary - Focused Exam Sepsis Event Note Statement: Focused Sepsis Exam Completed Vital Signs: Vital Signs Temp Pulse Resp BP Pulse Ox 04/01/20 19:45 150 H 04/01/20 19:35 148 H 20 110/78 98 04/01/20 18:30 133 H 20 100/88 97 04/01/20 17:33 36.1 C 166 H 23 H 114/83 Capillary Refill, Detail: Less than/Equal to (</=) 2 Seconds Problem List Initiated/Reviewed/Updated: Yes Orders Last 24hrs: Active Orders 24 hr Category Date Time Status Patient Status [ADT] Routine ADT 04/01/20 19:44 Active Bedrest Bedside Commode [RC] ASDIRECTED Care 04/01/20 19:37 Ordered Cardiac Monitoring [RC] . DIRECTED Care 04/01/20 17:39 Active Cardiac Monitoring [RC] CONTINUOUS Care 04/01/20 19:38 Ordered Intake and Output [RC] QSHIFT Care 04/01/20 19:38 Ordered Oxygen Therapy [RC] PRN Care 04/01/20 19:37 Ordered Peripheral IV Care [RC] . DIRECTED Care 04/01/20 17:40 Active Pulse Oximetry [RC] CONTINUOUS Care 04/01/20 19:38 Ordered RT Aerosol Therapy [RC] ASDIRECTED Care 04/01/20 19:42 Ordered VTE/DVT Education [RC] PER UNIT ROUTINE Care 04/01/20 19:37 Ordered Vital Signs [RC] Q12HR Care 04/01/20 19:37 Ordered OT Evaluation and Treatment [CONS] Routine Cons 04/01/20 19:48 Ordered PT Evaluation and Treatment [CONS] Routine Cons 04/01/20 19:48 Ordered Regular Diet [DIET] Diet 04/01/20 Dinner Ordered Chest 1V Frontal [CR] Stat Exams 04/01/20 17:40 Taken C-REACTIVE PROTEIN [CHEM] DAILY Lab 04/02/20 05:00 Ordered C-REACTIVE PROTEIN [CHEM] DAILY Lab 04/03/20 05:00 Ordered CBC WITH AUTO DIFF [HEME] DAILY Lab 04/02/20 05:00 Ordered CBC WITH AUTO DIFF [HEME] DAILY Lab 04/03/20 05:00 Ordered CBC WITH AUTO DIFF [HEME] DAILY Lab 04/04/20 05:00 Ordered CBC WITH AUTO DIFF [HEME] DAILY Lab 04/05/20 05:00 Ordered COMPREHENSIVE METABOLIC PN,CMP [CHEM] DAILY Lab 04/02/20 05:00 Ordered COMPREHENSIVE METABOLIC PN,CMP [CHEM] DAILY Lab 04/03/20 05:00 Ordered COMPREHENSIVE METABOLIC PN,CMP [CHEM] DAILY Lab 04/04/20 05:00 Ordered COMPREHENSIVE METABOLIC PN,CMP [CHEM] DAILY Lab 04/05/20 05:00 Ordered CULTURE BLOOD [BC] Stat Lab 04/01/20 18:37 Ordered CULTURE BLOOD [BC] Stat Lab 04/01/20 19:10 Received CULTURE MRSA [RM] Stat Lab 04/01/20 19:48 Ordered CULTURE SPUTUM + SMEAR [RM] Stat Lab 04/01/20 19:48 Ordered D-DIMER QUANTITATIVE [COAG] Stat Lab 04/01/20 20:00 Ordered DRUG SCREEN URINE, POC [POC] Stat Lab 04/01/20 20:03 Ordered INFLUENZA A+B AG SCREEN [RM] Stat Lab 04/01/20 20:02 Ordered INR,PT,PROTHROMBIN TIME [COAG] DAILY Lab 04/02/20 05:00 Ordered PRO B-TYPE NATRIUR PEPT,BNPPRO [CHEM] Stat Lab 04/01/20 19:48 Ordered PROCALCITONIN [REF] Urgent Lab 04/01/20 20:01 Ordered TROPONIN I [CHEM] Q6H Lab 04/01/20 19:43 Ordered TROPONIN I [CHEM] Q6H Lab 04/02/20 01:43 Ordered Acetaminophen [TylenoL] Med 04/01/20 19:37 Ordered 650 mg PO Q6H PRN Albuterol/Ipratropium [DuoNeb 3.0-0.5 MG/3 ML] Med 04/01/20 19:37 Ordered 3 ml NEB Q4H PRN Aspirin Med 04/01/20 20:00 Ordered 325 mg PO DAILY Diltiazem [Cardizem] 100 mg Med 04/01/20 17:45 Active Sodium Chloride 0.9% [Normal Saline] 100 ml IV TITRATE Docusate Sodium [Colace] Med 04/01/20 19:37 Ordered 100 mg PO BID PRN Doxycycline [Vibramycin] 100 mg Med 04/01/20 21:00 Ordered Sodium Chloride 0.9% [Normal Saline] 100 ml IV Q12HR Heparin Sodium Med 04/01/20 19:45 Ordered 5,000 units SUBCUT Q8H Lactated Ringers [Ringers, Lactated] 1,000 ml Med 04/01/20 19:45 Ordered IV ASDIRECTED Metoprolol Tartrate [Lopressor] Med 04/01/20 20:00 Ordered 12.5 mg PO Q12H Morphine Med 04/01/20 19:37 Ordered 2 mg IVPUSH Q4H PRN Promethazine [Phenergan] 12.5 mg Med 04/01/20 19:37 Ordered Sodium Chloride 0.9% [Normal Saline] 50 ml IV Q6H Simvastatin [Zocor] Med 04/01/20 21:00 Ordered 10 mg PO BEDTIME Sodium Chloride 0.9% [Saline Flush] Med 04/01/20 17:39 Active 10 ml FLUSH ASDIRECTED PRN cefTRIAXone [Rocephin] 1 gm Med 04/01/20 20:00 Ordered Sodium Chloride 0.9% [Normal Saline] 100 ml IV Q24H hydrALAZINE [Apresoline] Med 04/01/20 19:55 Ordered 10 mg IVPUSH Q4H PRN oxyCODONE Med 04/01/20 19:37 Ordered 5 mg PO Q4H PRN Blood Culture x2 Reflex Set [OM.PC] Stat Oth 04/01/20 18:37 Ordered Isolation [COMM] Routine Oth 04/01/20 20:03 Ordered Peripheral IV Insertion Adult [OM.PC] Stat Oth 04/01/20 17:39 Ordered Resuscitation Status Routine Resus Stat 04/01/20 19:37 Ordered Medication Orders Acetaminophen (Tylenol) 650 mg PO Q6H PRN PRN Reason: Pain (Mild 1-3)/fever Albuterol/Ipratropium (Duoneb 3.0-0.5 Mg/3 Ml) 3 ml NEB Q4H PRN PRN Reason: Shortness Of Breath/wheezing Aspirin (Ecotrin) 325 mg PO DAILY BRANDIE Docusate Sodium (Colace) 100 mg PO BID PRN PRN Reason: Constipation Heparin Sodium (Porcine) (Heparin Sodium) 5,000 units SUBCUT Q8H BRANDIE Hydralazine HCl (Apresoline) 10 mg IVPUSH Q4H PRN PRN Reason: Hypertension Diltiazem HCl 100 mg/ Sodium (Chloride) 100 mls @ 10 mls/hr IV TITRATE BRANDIE; Protocol Last Titration: 04/01/20 19:25 Dose: 10 mg/hr, 10 mls/hr Documented by: Titration: 04/01/20 18:30 Dose: 5 mg/hr, 5 mls/hr Documented by: Admin: 04/01/20 17:48 Dose: 10 mg/hr, 10 mls/hr Documented by: ANASTASIYA Lactated Ringer's (Ringers, Lactated) 1,000 mls @ 80 mls/hr IV ASDIRECTED BRANDIE Promethazine HCl 12.5 mg/ (Sodium Chloride) 50.5 mls @ 100 mls/hr IV Q6H PRN PRN Reason: Nausea/Vomiting Ceftriaxone Sodium 1 gm/ (Sodium Chloride) 100 mls @ 200 mls/hr IV Q24H BRANDIE Doxycycline Hyclate 100 mg/ (Sodium Chloride) 100 mls @ 100 mls/hr IV Q12HR [facility] Metoprolol Tartrate (Lopressor) 12.5 mg PO Q12H BRANDIE Morphine Sulfate (Morphine) 2 mg IVPUSH Q4H PRN PRN Reason: Pain (severe 7-10) Stop: 04/02/20 19:41 Oxycodone HCl (Oxycodone) 5 mg PO Q4H PRN PRN Reason: Pain (moderate 4-6) Simvastatin (Zocor) 10 mg PO BEDTIME BRANDIE Sodium Chloride (Saline Flush) 10 ml FLUSH ASDIRECTED PRN PRN Reason: Keep Vein Open Last Admin: 04/01/20 17:52 Dose: 10 ml Documented by: ANASTASIYA Assessment/Plan Comment:: Assessment and plan: 1. Atrial fibrillation with RVR Possibly newly diagnosed EKG - no ST elevation Troponin 0.034, 0.030 TSH K 4.4, Mag 2.1 Metoprolol 12.5 mg twice daily Diltiazem drip I did not order therapeutic anticoagulation due to concerning about thrombocytopenia. D-dimer negative, 0.34 2. Acute hypoxic respiratory failure He needs 2L in the ER Pulse ox Oxygen therapy 3. Severe sepsis 2nd to pneumonia 4. Pneumonia, CAP? Chest x-ray showed right-sided bronchitis Lactic acid 3.6 IV fluid resuscitation Blood culture Sputum culture Influenza a and B screen MRSA screen Rocephin and doxycycline 5. CAD, s/p stenting in 2014 Continue home medication 6. Thrombocytopenia, 128 No evidence of bleeding Repeat platelets in the morning I do not order therapeutic anticoagulation 7. BRYCE or BRYCE on CKD stage III, creatinine 1.1 on 12/08/2014 Avoid nephrotoxic meds IV fluid Repeat the renal function the morning 8. Hypothyroidism? TSH 3.839 I may start him on low dose synthroid when his HR is controlled 9. DVT prophylaxis: Lovenox 10. CODE STATUS: Full Prognosis: Good. - Mortality Measure Prognosis:: Good
[2020-04-01] MEDS ORDERED: Sodium Chloride 0.9% 500 ML IV ONE (20:13)
[2020-04-01] MEDS: Simvastatin 10 MG Tab PO SCH (20:41)
[2020-04-01] MEDS: Aspirin 325 MG Tab.EC PO SCH (20:41)
[2020-04-01] MEDS: Heparin Sodium 5,000 Units/ML Vial SUBCUT SCH (20:42)
[2020-04-01] MEDS: Metoprolol Tartrate 25 MG Tab PO SCH (20:47)
[2020-04-01] MEDS: Doxycycline 100 MG in Sodium Chloride 0.9% 100 ML IV SCH (21:13)
[2020-04-02] MEDS: Diltiazem 100 MG in Sodium Chloride 0.9% 100 ML IV SCH ×2 (02:23→16:48)
[2020-04-02] MEDS: Heparin Sodium 5,000 Units/ML Vial SUBCUT SCH (06:44)
[2020-04-02] MEDS: Metoprolol Tartrate 25 MG Tab PO SCH ×3 (08:18→20:11)
[2020-04-02] MEDS: Doxycycline 100 MG in Sodium Chloride 0.9% 100 ML IV SCH ×2 (08:57→20:19)
[2020-04-02] MEDS: Aspirin 325 MG Tab.EC PO SCH (09:05)
--- NOTE | 2020-04-02 09:05 | CR ---
Chest: Portable view of the chest was obtained. Comparison: Prior chest x-ray of 12/08/14. Heart is enlarged. Upper mediastinum is normal. Pulmonary vessels are felt to be slightly asymmetrically congested. Lungs otherwise are clear. Bony structures are unremarkable. Impression: 1. Cardiomegaly and possible mild asymmetric pulmonary vascular congestion. Please correlate if this matches clinically. Findings could otherwise represent diffuse right-sided bronchitis. 2. No other acute abnormality is appreciated. Diagnostic code #3 I agree with preliminary report from [facility], finalized on 04/01/20, 7:01 PM [employer]
[2020-04-02] MEDS: Enoxaparin 40 MG/0.4 ML Syringe SUBCUT SCH (09:09)
[2020-04-02] MEDS ORDERED: Digoxin 500 MCG/2 ML Amp IVPUSH ONE ×2 (09:28→15:22)
[2020-04-02] MEDS: Codeine/guaiFENesin 10-100 MG/5 ML Syrup 5 ML Cup PO PRN ×2 (11:03→20:12)
--- NOTE | 2020-04-02 11:51 | PCM.PN ---
- General Info Date of Service: 04/02/20 Admission Dx/Problem (Free Text): Admission Diagnosis/Problem Admission Diagnosis/Problem Atrial fibrillation Subjective Update: Today patient feels a better, less heart racing. She still has a mild shortness of breath associated with cough. Denies headache, dizziness, nausea, vomiting, chest pain, or dysuria. This morning his blood pressure was soft Heart rate 133, respiration rate up to 29 He is not on room air Prolapse dropped to 92, it was a 128 yesterday D-dimer 0.34 Creatinine 1.4 BNP 08111 Total bilirubin 1.6, AST 44 - Review of Systems Systems Review Comment:: Positive for shortness of breath and heart racing. All other systems were reviewed and negative. - Patient Data Vitals - Most Recent: Last Vital Signs Temp 36.7 C 04/02/20 08:00 Pulse 78 04/02/20 10:15 Resp 29 H 04/02/20 08:00 BP 103/70 04/02/20 10:15 Pulse Ox 93 L 04/02/20 08:00 Weight - Most Recent: 64.818 kg I&O - Last 24 Hours: Intake & Output 04/01/20 04/02/20 04/02/20 22:59 06:59 14:59 Intake Total 310 1419 830 Output Total 100 325 100 Balance 210 1094 730 Lab Results Last 24 Hours: Laboratory Results - last 24 hr 04/01/20 04/01/20 04/01/20 Range/Units 17:30 17:55 18:10 WBC 6.19 (4.23-9.07) K/mm3 RBC 5.42 (4.63-6.08) M/mm3 Hgb 16.6 D (13.7-17.5) gm/dl Hct 52.2 H (40.1-51.0) % MCV 96.3 H D (79.0-92.2) fl MCH 30.6 (25.7-32.2) pg MCHC 31.8 L (32.2-35.5) g/dl RDW Std Deviation 70.1 H (35.1-43.9) fL Plt Count 128 L (163-337) K/mm3 MPV Neut % (Auto) 53.5 (34.0-67.9) % Lymph % (Auto) 35.1 (21.8-53.1) % [place] % (Auto) 8.9 (5.3-12.2) % Eos % (Auto) 1.0 (0.8-7.0) Baso % (Auto) 1.0 (0.1-1.2) % Neut # (Auto) 0.50 L (1.78-5.38) K/mm3 Lymph # (Auto) 2.17 (1.32-3.57) K/mm3 [place] # (Auto) 0.55 (0.30-0.82) K/mm3 Eos # (Auto) 0.06 (0.04-0.54) K/mm3 Baso # (Auto) 0.06 (0.01-0.08) K/mm3 Manual Slide Review Abnormal smear PT (9.7-12.0) SECONDS INR D-Dimer, Quantitative (0.19-0.50) mg/L Sodium 140 (136-145) mEq/L Potassium 4.4 (3.5-5.1) mEq/L Chloride 103 (98-107) mEq/L Carbon Dioxide 20 L (21-32) mEq/L Anion Gap 21.4 H (5-15) BUN 36 H (7-18) mg/dL Creatinine 1.5 H (0.7-1.3) mg/dL Est Cr Clr Drug Dosing 37.76 mL/min Estimated GFR (MDRD) 45 (>60) mL/min BUN/Creatinine Ratio 24.0 H (14-18) Glucose 144 H (83-115) mg/dL Lactic Acid (0.4-2.0) mmol/L Calcium 9.1 (8.5-10.1) mg/dL Magnesium 2.1 (1.8-2.4) mg/dl Total Bilirubin 2.5 H (0.2-1.0) mg/dL AST 52 H (15-37) U/L ALT 72 H (16-63) U/L Alkaline Phosphatase 116 (46-116) U/L Troponin I 0.022 (0.00-0.056) ng/mL C-Reactive Protein (<1.0) mg/dL NT-Pro-B Natriuret Pep (0-450) pg/mL Total Protein 6.7 (6.4-8.2) g/dl Albumin 3.5 (3.4-5.0) g/dl Globulin 3.2 gm/dL Albumin/Globulin Ratio 1.1 (1-2) TSH 3rd Generation 3.839 H (0.358-3.74) uIU/mL Influenza Type A RNA Negative (NEGATIVE) Influenza Type B RNA Negative (NEGATIVE) SARS-CoV-2 RNA (CHAU) Negative (NEGATIVE) MRSA (PCR) 04/01/20 04/01/20 04/01/20 Range/Units 18:10 18:10 19:10 WBC (4.23-9.07) K/mm3 RBC (4.63-6.08) M/mm3 Hgb (13.7-17.5) gm/dl Hct (40.1-51.0) % MCV (79.0-92.2) fl MCH (25.7-32.2) pg MCHC (32.2-35.5) g/dl RDW Std Deviation (35.1-43.9) fL Plt Count (163-337) K/mm3 MPV Neut % (Auto) (34.0-67.9) % Lymph % (Auto) (21.8-53.1) % [place] % (Auto) (5.3-12.2) % Eos % (Auto) (0.8-7.0) Baso % (Auto) (0.1-1.2) % Neut # (Auto) (1.78-5.38) K/mm3 Lymph # (Auto) (1.32-3.57) K/mm3 [place] # (Auto) (0.30-0.82) K/mm3 Eos # (Auto) (0.04-0.54) K/mm3 Baso # (Auto) (0.01-0.08) K/mm3 Manual Slide Review PT (9.7-12.0) SECONDS INR D-Dimer, Quantitative (0.19-0.50) mg/L Sodium (136-145) mEq/L Potassium (3.5-5.1) mEq/L Chloride (98-107) mEq/L Carbon Dioxide (21-32) mEq/L Anion Gap (5-15) BUN (7-18) mg/dL Creatinine (0.7-1.3) mg/dL Est Cr Clr Drug Dosing mL/min Estimated GFR (MDRD) (>60) mL/min BUN/Creatinine Ratio (14-18) Glucose (83-115) mg/dL Lactic Acid 3.6 H* (0.4-2.0) mmol/L Calcium (8.5-10.1) mg/dL Magnesium (1.8-2.4) mg/dl Total Bilirubin (0.2-1.0) mg/dL AST (15-37) U/L ALT (16-63) U/L Alkaline Phosphatase (46-116) U/L Troponin I (0.00-0.056) ng/mL C-Reactive Protein 1.4 H* (<1.0) mg/dL NT-Pro-B Natriuret Pep 17095 H (0-450) pg/mL Total Protein (6.4-8.2) g/dl Albumin (3.4-5.0) g/dl Globulin gm/dL Albumin/Globulin Ratio (1-2) TSH 3rd Generation (0.358-3.74) uIU/mL Influenza Type A RNA (NEGATIVE) Influenza Type B RNA (NEGATIVE) SARS-CoV-2 RNA (CHAU) (NEGATIVE) MRSA (PCR) 04/01/20 04/01/20 04/01/20 Range/Units 20:03 20:03 21:21 WBC (4.23-9.07) K/mm3 RBC (4.63-6.08) M/mm3 Hgb (13.7-17.5) gm/dl Hct (40.1-51.0) % MCV (79.0-92.2) fl MCH (25.7-32.2) pg MCHC (32.2-35.5) g/dl RDW Std Deviation (35.1-43.9) fL Plt Count (163-337) K/mm3 MPV Neut % (Auto) (34.0-67.9) % Lymph % (Auto) (21.8-53.1) % [place] % (Auto) (5.3-12.2) % Eos % (Auto) (0.8-7.0) Baso % (Auto) (0.1-1.2) % Neut # (Auto) (1.78-5.38) K/mm3 Lymph # (Auto) (1.32-3.57) K/mm3 [place] # (Auto) (0.30-0.82) K/mm3 Eos # (Auto) (0.04-0.54) K/mm3 Baso # (Auto) (0.01-0.08) K/mm3 Manual Slide Review PT (9.7-12.0) SECONDS INR D-Dimer, Quantitative 0.34 (0.19-0.50) mg/L Sodium (136-145) mEq/L Potassium (3.5-5.1) mEq/L Chloride (98-107) mEq/L Carbon Dioxide (21-32) mEq/L Anion Gap (5-15) BUN (7-18) mg/dL Creatinine (0.7-1.3) mg/dL Est Cr Clr Drug Dosing mL/min Estimated GFR (MDRD) (>60) mL/min BUN/Creatinine Ratio (14-18) Glucose (83-115) mg/dL Lactic Acid (0.4-2.0) mmol/L Calcium (8.5-10.1) mg/dL Magnesium (1.8-2.4) mg/dl Total Bilirubin (0.2-1.0) mg/dL AST (15-37) U/L ALT (16-63) U/L Alkaline Phosphatase (46-116) U/L Troponin I 0.034 (0.00-0.056) ng/mL C-Reactive Protein (<1.0) mg/dL NT-Pro-B Natriuret Pep (0-450) pg/mL Total Protein (6.4-8.2) g/dl Albumin (3.4-5.0) g/dl Globulin gm/dL Albumin/Globulin Ratio (1-2) TSH 3rd Generation (0.358-3.74) uIU/mL Influenza Type A RNA (NEGATIVE) Influenza Type B RNA (NEGATIVE) SARS-CoV-2 RNA (CHAU) (NEGATIVE) MRSA (PCR) Negative 04/02/20 04/02/20 04/02/20 Range/Units 01:34 01:34 01:34 WBC 4.94 (4.23-9.07) K/mm3 RBC 4.43 L (4.63-6.08) M/mm3 Hgb 13.6 L D (13.7-17.5) gm/dl Hct 43.6 (40.1-51.0) % MCV 98.4 H (79.0-92.2) fl MCH 30.7 (25.7-32.2) pg MCHC 31.2 L (32.2-35.5) g/dl RDW Std Deviation 68.7 H (35.1-43.9) fL Plt Count 92 L (163-337) K/mm3 MPV TNP Neut % (Auto) 52.5 (34.0-67.9) % Lymph % (Auto) 35.6 (21.8-53.1) % [place] % (Auto) 9.5 (5.3-12.2) % Eos % (Auto) 1.6 (0.8-7.0) Baso % (Auto) 0.6 (0.1-1.2) % Neut # (Auto) 2.59 (1.78-5.38) K/mm3 Lymph # (Auto) 1.76 (1.32-3.57) K/mm3 [place] # (Auto) 0.47 (0.30-0.82) K/mm3 Eos # (Auto) 0.08 (0.04-0.54) K/mm3 Baso # (Auto) 0.03 (0.01-0.08) K/mm3 Manual Slide Review Abnormal smear PT 14.0 H (9.7-12.0) SECONDS INR 1.32 D-Dimer, Quantitative (0.19-0.50) mg/L Sodium (136-145) mEq/L Potassium (3.5-5.1) mEq/L Chloride (98-107) mEq/L Carbon Dioxide (21-32) mEq/L Anion Gap (5-15) BUN (7-18) mg/dL Creatinine (0.7-1.3) mg/dL Est Cr Clr Drug Dosing mL/min Estimated GFR (MDRD) (>60) mL/min BUN/Creatinine Ratio (14-18) Glucose (83-115) mg/dL Lactic Acid (0.4-2.0) mmol/L Calcium (8.5-10.1) mg/dL Magnesium (1.8-2.4) mg/dl Total Bilirubin (0.2-1.0) mg/dL AST (15-37) U/L ALT (16-63) U/L Alkaline Phosphatase (46-116) U/L Troponin I 0.030 (0.00-0.056) ng/mL C-Reactive Protein (<1.0) mg/dL NT-Pro-B Natriuret Pep (0-450) pg/mL Total Protein (6.4-8.2) g/dl Albumin (3.4-5.0) g/dl Globulin gm/dL Albumin/Globulin Ratio (1-2) TSH 3rd Generation (0.358-3.74) uIU/mL Influenza Type A RNA (NEGATIVE) Influenza Type B RNA (NEGATIVE) SARS-CoV-2 RNA (CHAU) (NEGATIVE) MRSA (PCR) 04/02/20 04/02/20 Range/Units 01:34 01:34 WBC (4.23-9.07) K/mm3 RBC (4.63-6.08) M/mm3 Hgb (13.7-17.5) gm/dl Hct (40.1-51.0) % MCV (79.0-92.2) fl MCH (25.7-32.2) pg MCHC (32.2-35.5) g/dl RDW Std Deviation (35.1-43.9) fL Plt Count (163-337) K/mm3 MPV Neut % (Auto) (34.0-67.9) % Lymph % (Auto) (21.8-53.1) % [place] % (Auto) (5.3-12.2) % Eos % (Auto) (0.8-7.0) Baso % (Auto) (0.1-1.2) % Neut # (Auto) (1.78-5.38) K/mm3 Lymph # (Auto) (1.32-3.57) K/mm3 [place] # (Auto) (0.30-0.82) K/mm3 Eos # (Auto) (0.04-0.54) K/mm3 Baso # (Auto) (0.01-0.08) K/mm3 Manual Slide Review PT (9.7-12.0) SECONDS INR D-Dimer, Quantitative (0.19-0.50) mg/L Sodium 141 (136-145) mEq/L Potassium 4.3 (3.5-5.1) mEq/L Chloride 106 (98-107) mEq/L Carbon Dioxide 18 L (21-32) mEq/L Anion Gap 21.3 H (5-15) BUN 32 H (7-18) mg/dL Creatinine 1.4 H (0.7-1.3) mg/dL Est Cr Clr Drug Dosing 35.80 mL/min Estimated GFR (MDRD) 49 (>60) mL/min BUN/Creatinine Ratio 22.9 H (14-18) Glucose 105 (83-115) mg/dL Lactic Acid 1.9 (0.4-2.0) mmol/L Calcium 8.2 L (8.5-10.1) mg/dL Magnesium (1.8-2.4) mg/dl Total Bilirubin 1.6 H (0.2-1.0) mg/dL AST 44 H (15-37) U/L ALT 58 (16-63) U/L Alkaline Phosphatase 96 (46-116) U/L Troponin I (0.00-0.056) ng/mL C-Reactive Protein 1.3 H* (<1.0) mg/dL NT-Pro-B Natriuret Pep (0-450) pg/mL Total Protein 5.8 L (6.4-8.2) g/dl Albumin 2.9 L (3.4-5.0) g/dl Globulin 2.9 gm/dL Albumin/Globulin Ratio 1.0 (1-2) TSH 3rd Generation (0.358-3.74) uIU/mL Influenza Type A RNA (NEGATIVE) Influenza Type B RNA (NEGATIVE) SARS-CoV-2 RNA (CHAU) (NEGATIVE) MRSA (PCR) [place] Results Last 24 Hours: Microbiology 04/01/20 19:10 Anaerobic Blood Culture - Final Blood - Venous 04/02/20 05:30 Gram Stain - Final Sputum - Expectorated Sputum Culture - Final Med Orders - Current: Current Medications Acetaminophen (Tylenol) 650 mg PO Q6H PRN PRN Reason: Pain (Mild 1-3)/fever Albuterol/Ipratropium (Duoneb 3.0-0.5 Mg/3 Ml) 3 ml NEB Q4H PRN PRN Reason: Shortness Of Breath/wheezing Docusate Sodium (Colace) 100 mg PO BID PRN PRN Reason: Constipation Enoxaparin Sodium (Lovenox) 40 mg SUBCUT Q24H [facility] Last Admin: 04/02/20 09:09 Dose: 40 mg Documented by: Guaifenesin/Codeine Phosphate (Robitussin Ac) 5 ml PO Q6H PRN PRN Reason: Cough Last Admin: 04/02/20 11:03 Dose: 5 ml Documented by: Hydralazine HCl (Apresoline) 10 mg IVPUSH Q4H PRN PRN Reason: Hypertension Diltiazem HCl 100 mg/ Sodium (Chloride) 100 mls @ 10 mls/hr IV TITRATE [facility]; Protocol Last Titration: 04/02/20 10:21 Dose: 5 mg/hr, 5 mls/hr Documented by: Promethazine HCl 12.5 mg/ (Sodium Chloride) 50.5 mls @ 100 mls/hr IV Q6H PRN PRN Reason: Nausea/Vomiting Ceftriaxone Sodium 1 gm/ (Sodium Chloride) 100 mls @ 200 mls/hr IV Q24H BRANDIE Doxycycline Hyclate 100 mg/ (Sodium Chloride) 100 mls @ 100 mls/hr IV Q12HR [facility] Last Admin: 04/02/20 08:57 Dose: 100 mls/hr Documented by: Metoprolol Tartrate (Lopressor) 25 mg PO Q12H [facility] Last Admin: 04/02/20 09:08 Dose: 12.5 mg Documented by: Morphine Sulfate (Morphine) 2 mg IVPUSH Q4H PRN PRN Reason: Pain (severe 7-10) Stop: 04/02/20 19:41 Oxycodone HCl (Oxycodone) 5 mg PO Q4H PRN PRN Reason: Pain (moderate 4-6) Simvastatin (Zocor) 10 mg PO BEDTIME [facility] Last Admin: 04/01/20 20:41 Dose: 10 mg Documented by: Sodium Chloride (Saline Flush) 10 ml FLUSH ASDIRECTED PRN PRN Reason: Keep Vein Open Last Admin: 04/01/20 17:52 Dose: 10 ml Documented by: Discontinued Medications Aspirin (Ecotrin) 325 mg PO DAILY [facility] Last Admin: 04/02/20 09:05 Dose: Not Given Documented by: Digoxin (Lanoxin) 250 mcg IVPUSH ONETIME ONE Stop: 04/02/20 09:29 Last Admin: 04/02/20 09:43 Dose: 250 mcg Documented by: Diltiazem HCl (Cardizem) Confirm Administered Dose 50 mg .ROUTE .STK-MED ONE Stop: 04/01/20 17:39 Last Admin: 04/01/20 17:52 Dose: Not Given Documented by: Diltiazem HCl (Cardizem) 10 mg IVPUSH ONETIME ONE Stop: 04/01/20 17:41 Last Admin: 04/01/20 17:42 Dose: 10 mg Documented by: Heparin Sodium (Porcine) (Heparin Sodium) 5,000 units SUBCUT Q8H [facility] Last Admin: 04/02/20 06:44 Dose: Not Given Documented by: Sodium Chloride (Normal Saline) 1,000 mls @ 125 mls/hr IV ASDIRECTED [facility] Last Infusion: 04/01/20 18:30 Dose: 999 mls/hr Documented by: Ceftriaxone Sodium 2 gm/ (Sodium Chloride) 100 mls @ 200 mls/hr IV ONETIME ONE Stop: 04/01/20 19:09 Last Admin: 04/01/20 19:45 Dose: 200 mls/hr Documented by: Lactated Ringer's (Ringers, Lactated) 1,000 mls @ 80 mls/hr IV ASDIRECTED [facility] Last Admin: 04/02/20 00:16 Dose: 80 mls/hr Documented by: Sodium Chloride (Normal Saline) 500 mls @ 150 mls/hr IV ONETIME ONE Stop: 04/01/20 23:32 Last Admin: 04/01/20 20:44 Dose: 150 mls/hr Documented by: Metoprolol Tartrate (Lopressor) 12.5 mg PO Q12H [facility] Last Admin: 04/02/20 08:18 Dose: 12.5 mg Documented by: - Exam Physical Findings Comments:: Physical Exam: General: No acute distress HEENT: Conjunctiva Clear, EOMI, Mucosa Moist & [place] Neck: Supple, Trachea Midline, NO JVD Lungs: Diminished breathing sounds, normal Respiratory Effort Cardiovascular: Tachycardia, irregular irregular rhythm GI/Abdominal Exam: Normal Bowel Sounds, Soft, Non-Tender, No Organomegaly, No Distention, No Abnormal Bruit, No Mass Extremities: Normal Inspection, Non-Tender, No Pedal Edema, Normal Capillary Refill Skin: Warm, Dry, Intact Neurology: A+O x 3, no focal neurological deficits Psychiatric: Normal Mood Sepsis Event Note - Evaluation Sepsis Screening Result: Sepsis Risk - Focused Exam Vital Signs: Vital Signs Temp Pulse Pulse Resp BP BP Pulse Ox 04/02/20 10:15 78 103/70 04/02/20 10:00 111 H 96/80 04/02/20 09:43 114 H 04/02/20 09:08 122 H 101/83 04/02/20 09:00 122 H 101/83 04/02/20 08:18 133 H 96/84 04/02/20 08:00 36.7 C 118 H 29 H 96/84 93 L 04/02/20 06:55 94/63 93 L 04/02/20 06:01 22 H 95 04/02/20 06:00 105/67 04/02/20 05:01 23 H 97 04/02/20 05:00 94/73 04/02/20 04:00 36.2 C 28 H 95/65 95 04/02/20 03:00 85/69 L 04/02/20 02:00 19 87/69 L 96 04/02/20 01:01 99 04/02/20 01:00 21 H 95/62 97 04/02/20 00:01 24 H 100 04/02/20 00:00 36.4 C 26 H 90/67 94 L - Problem List Review Problem List Initiated/Reviewed/Updated: Yes - My Orders Last 24 Hours: My Active Orders 04/01/20 Dinner Regular Diet [DIET] 04/01/20 19:37 Bedrest Bedside Commode [RC] ASDIRECTED Oxygen Therapy [RC] PRN VTE/DVT Education [RC] Vital Signs [RC] Q1HR Acetaminophen [TylenoL] 650 mg PO Q6H PRN Albuterol/Ipratropium [DuoNeb 3.0-0.5 MG/3 ML] 3 ml NEB Q4H PRN Docusate Sodium [Colace] 100 mg PO BID PRN Morphine 2 mg IVPUSH Q4H PRN Promethazine [Phenergan] 12.5 mg Sodium Chloride 0.9% [Normal Saline] 50 ml IV Q6H oxyCODONE 5 mg PO Q4H PRN Resuscitation Status Routine 04/01/20 19:38 Cardiac Monitoring [RC] CONTINUOUS Intake and Output [RC] 04,16 Pulse Oximetry [RC] CONTINUOUS 04/01/20 19:42 RT Aerosol Therapy [RC] ASDIRECTED 04/01/20 19:48 OT Evaluation and Treatment [CONS] Routine PT Evaluation and Treatment [CONS] Routine 04/01/20 19:55 hydrALAZINE [Apresoline] 10 mg IVPUSH Q4H PRN 04/01/20 20:01 PROCALCITONIN [REF] Urgent 04/01/20 20:03 Isolation [COMM] Routine 04/01/20 21:00 Doxycycline [Vibramycin] 100 mg Sodium Chloride 0.9% [Normal Saline] 100 ml IV Q12HR Simvastatin [Zocor] 10 mg PO BEDTIME 04/01/20 21:22 CULTURE MRSA [RM] Stat 04/02/20 08:44 Metoprolol Tartrate [Lopressor] 25 mg PO Q12H 04/02/20 09:00 Enoxaparin [Lovenox] 40 mg SUBCUT Q24H 04/02/20 09:30 Codeine/guaiFENesin [Robitussin AC] 5 ml PO Q6H PRN 04/02/20 09:32 Communication Order [RC] ASDIRECTED 04/02/20 20:00 cefTRIAXone [Rocephin] 1 gm Sodium Chloride 0.9% [Normal Saline] 100 ml IV Q24H 04/03/20 05:00 C-REACTIVE PROTEIN [CHEM] DAILY CBC WITH AUTO DIFF [HEME] DAILY COMPREHENSIVE METABOLIC PN,CMP [CHEM] DAILY 04/04/20 05:00 CBC WITH AUTO DIFF [HEME] DAILY COMPREHENSIVE METABOLIC PN,CMP [CHEM] DAILY 04/05/20 05:00 CBC WITH AUTO DIFF [HEME] DAILY COMPREHENSIVE METABOLIC PN,CMP [CHEM] DAILY - Plan Plan:: Assessment and plan: 1. Atrial fibrillation with RVR Possibly newly diagnosed EKG - no ST elevation Troponin 0.034, 0.030 TSH 3.839 Metoprolol 12.5 mg twice daily Diltiazem drip Corrected electrolytes I did not order therapeutic anticoagulation due to concerning about thrombocytopenia. D-dimer negative, 0.34 2. Acute hypoxic respiratory failure He needs 2L in the ER Pulse ox Oxygen therapy. He is now on room air 3. Severe sepsis 2nd to pneumonia 4. Pneumonia, CAP? Chest x-ray showed right-sided bronchitis Lactic acid 3.6 IV fluid resuscitation Blood culture -no growth Sputum culture-no growth Influenza a and B screen -negative MRSA screen-negative Rocephin and doxycycline 5. CAD, s/p stenting in 2015 Continue home medication 6. Thrombocytopenia 92 No evidence of bleeding Repeat platelets in the morning I do not order therapeutic anticoagulation 7. BRYCE or BRYCE on CKD stage III, creatinine 1.1 on 12/08/2014 Avoid nephrotoxic meds IV fluid Repeat the renal function the morning 8. Hypothyroidism? TSH 3.839 I may start him on low dose synthroid when his HR is controlled 9. CHF? BNP 68129 EKG - no ST elevation Troponin 0.034, 0.030 Chest x-ray showed cardiomegaly Echocardiogram Lasix was not ordered due to soft blood pressure Intake and output Aspirin and statin 10. Elevation of liver enzymes Total bilirubin 1.6 AST 44 Repeat liver function morning. If not improving, will do work-up 11. DVT prophylaxis: Lovenox 12. CODE STATUS: Full Prognosis: Good.
[2020-04-02] MEDS: Benzonatate 100 MG Cap PO PRN ×2 (12:44→20:12)
[2020-04-02] MEDS ORDERED: cefTRIAXone 1 GM in Sodium Chloride 0.9% 100 ML IV SCH (20:00)
[2020-04-02] MEDS: Simvastatin 10 MG Tab PO SCH (20:11)
[2020-04-03] MEDS: Benzonatate 100 MG Cap PO PRN (05:22)
[2020-04-03] MEDS: Codeine/guaiFENesin 10-100 MG/5 ML Syrup 5 ML Cup PO PRN (05:22)
[2020-04-03] MEDS: Diltiazem 100 MG in Sodium Chloride 0.9% 100 ML IV SCH (08:14)
[2020-04-03] MEDS ORDERED: Aspirin 81 MG Tab.EC PO SCH (09:00)
[2020-04-03] MEDS ORDERED: Doxycycline 100 MG Vial ONE (09:16)
[2020-04-03] MEDS: Metoprolol Tartrate 25 MG Tab PO SCH ×2 (09:45→13:10)
[2020-04-03] MEDS: Enoxaparin 40 MG/0.4 ML Syringe SUBCUT SCH (10:00)
[2020-04-03] MEDS: Doxycycline 100 MG in Sodium Chloride 0.9% 100 ML IV SCH (10:01)
[2020-04-03] MEDS ORDERED: Digoxin 500 MCG/2 ML Amp IVPUSH ONE (10:16)
[2020-04-03 13:17] VITALS: PULSE 119
--- NOTE | 2020-04-03 14:03 | PCM.DCSUM1 ---
Discharge Summary - Hospital Course Free Text/Narrative:: Assessment and plan: 1. Atrial fibrillation with RVR Possibly newly diagnosed EKG - no ST elevation Troponin 0.034, 0.030 TSH 3.839 increased Metoprolol to 25 mg twice daily Digoxin 250mcg iv once today Diltiazem drip prn K 3.9 and mag 2.1 I did not order therapeutic anticoagulation due to concerning about thrombocytopenia. D-dimer negative, 0.34 Update: pt was found to have non-sustained Vtach. BP is stable. Continue metoprolol and oxygen supply to maintain spo2 > 93. 2. Acute hypoxic respiratory failure Pulse ox Oxygen therapy. 3. Severe sepsis 2nd to pneumonia 4. Pneumonia, CAP? Chest x-ray showed right-sided bronchitis Lactic acid 3.6 in the ER IV fluid resuscitation Blood culture -no growth Sputum culture-no growth Influenza a and B screen -negative MRSA screen-negative Rocephin and doxycycline 5. CAD, s/p stenting in 2014 Continue home medication 6. Thrombocytopenia 98 today No evidence of bleeding Repeat platelets in the morning I do not order therapeutic anticoagulation 7. BRYCE or BRYCE on CKD stage III, creatinine 1.1 on 12/08/2014 Creatinine 1.2 today Avoid nephrotoxic meds IV fluid Repeat the renal function the morning 8. Hypothyroidism? TSH 3.839 I may start him on low dose synthroid when his HR is controlled 9. CHF Acute or chronic CHF exacerbation Etiology unknown BNP 39441 EKG - no ST elevation Troponin 0.034, 0.030 Chest x-ray showed cardiomegaly Echocardiogram - EF 25%: Severe biatrial dilation. Lasix was not ordered due to soft blood pressure Intake and output Aspirin and statin 10. Elevation of liver enzymes Total bilirubin 1.6 AST normalized the Repeat liver function morning. If not improving, will do work-up The patient still has shortness of breath. Otherwise he denies chest pain, nausea, vomiting, abdominal pain, or dysuria. Heart rate 105, blood pressure 102/68, respiration rate 24 to 31 on 3 L. 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 Discussed with Dr. Ramirez in [place] who accepted this patient. Discussed with patient who agreed to be transferred. Helicopter is not available. The patient will be transferred by ground. Patient is on IV fluids and oxygen (please make BiPAP and intubation ready during the transfer). HPI Initial Comments: Pt is a 79-year-old male with a history of CAD status post stenting in 2014 who was brought to the ER due to heart racing and shortness of breath for 4 days. As per patient, he has been feeling his heart beating too fast, coughing with a small amount of light yellowish sputum and having shortness of breath over the past 4 days. Patient called EMS who found patient had tachycardia, 210. In the ER, his heart rate was 160. Otherwise the patient denied headaches, dizziness, nausea, vomiting, fever, chills, chest pain, abdominal pain or dysuria. Chest x-ray showed cardiomegaly and right side of the bronchitis. Lactic acid 3.6. IV resuscitation and diltiazem drip were initiated. Diagnosis: Stroke: No - Discharge Data Discharge Date: 04/03/20 Discharge Disposition: DC/Tfer to Acute Hospital 02 Condition: Critical - Referral to Home Health Primary Care Physician: Irina Willett NP - Patient Summary/Data Consults: Consultations 04/01/20 19:48 OT Evaluation and Treatment [CONS] Routine PT Evaluation and Treatment [CONS] Routine - Discharge Plan *PRESCRIPTION DRUG MONITORING PROGRAM REVIEWED*: Not Applicable *COPY OF PRESCRIPTION DRUG MONITORING REPORT IN PATIENT REJI: Not Applicable Home Medications: Home Meds Albuterol/Ipratropium [DuoNeb 3.0-0.5 MG/3 ML] 3 ml NEB Q4H PRN neb 04/03/20 [Rx] Aspirin [Halfprin] 81 mg PO DAILY tab.ec 04/03/20 [Rx] Diltiazem [Cardizem] 100 mg IV TITRATE vial 04/03/20 [Rx] Docusate Sodium [Colace] 100 mg PO BID PRN cap 04/03/20 [Rx] Doxycycline [Vibramycin] 100 mg IV Q12HR vial 04/03/20 [Rx] Enoxaparin [Lovenox] 40 mg SUBCUT Q24H syringe 04/03/20 [Rx] Metoprolol Tartrate [Lopressor] 25 mg PO Q12H tablet 04/03/20 [Rx] Promethazine [Phenergan] 12.5 mg IV Q6H PRN vial 04/03/20 [Rx] cefTRIAXone [Rocephin] 1 gm IV Q24H adv 04/03/20 [Rx] hydrALAZINE [Apresoline] 10 mg IVPUSH Q4H PRN sdv 04/03/20 [Rx] Oxygen Therapy Mode: Nasal Cannula Oxygen Flow Rate (L/min): 5 Maintain SpO2% greater than: 94 Patient Handouts: Heart Failure Action Plan, Sepsis, Diagnosis, Adult, Steps to Quit Smoking Forms: ED Department Discharge Referrals: Irina Willett FRAME TENDER [Primary Care Provider] - - Discharge Summary/Plan Comment DC Time >30 min.: Yes - Patient Data Vitals - Most Recent: Last Vital Signs Temp 36.3 C 04/03/20 13:01 Pulse 119 H 04/03/20 13:10 Resp 19 04/03/20 13:01 BP 115/82 04/03/20 13:10 Pulse Ox 96 04/03/20 13:01 Weight - Most Recent: 65.317 kg I&O - Last 24 hours: Intake & Output 04/02/20 04/03/20 04/03/20 22:59 06:59 14:59 Intake Total 1671 880 480 Output Total 300 225 150 Balance 1371 655 330 Lab Results - Last 24 hrs: Laboratory Results - last 24 hr 04/02/20 04/03/20 04/03/20 Range/Units 01:34 05:44 05:44 WBC 5.50 (4.23-9.07) K/mm3 RBC 4.34 L (4.63-6.08) M/mm3 Hgb 13.5 L (13.7-17.5) gm/dl Hct 42.8 (40.1-51.0) % MCV 98.6 H (79.0-92.2) fl MCH 31.1 (25.7-32.2) pg MCHC 31.5 L (32.2-35.5) g/dl RDW Std Deviation 71.2 H (35.1-43.9) fL Plt Count 98 L (163-337) K/mm3 Neut % (Auto) 64.7 (34.0-67.9) % Lymph % (Auto) 21.3 L (21.8-53.1) % [place] % (Auto) 10.7 (5.3-12.2) % Eos % (Auto) 2.4 (0.8-7.0) Baso % (Auto) 0.5 (0.1-1.2) % Neut # (Auto) 3.56 (1.78-5.38) K/mm3 Lymph # (Auto) 1.17 L (1.32-3.57) K/mm3 [place] # (Auto) 0.59 (0.30-0.82) K/mm3 Eos # (Auto) 0.13 (0.04-0.54) K/mm3 Baso # (Auto) 0.03 (0.01-0.08) K/mm3 Manual Slide Review Abnormal smear Sodium 142 (136-145) mEq/L Potassium 3.9 (3.5-5.1) mEq/L Chloride 107 (98-107) mEq/L Carbon Dioxide 21 (21-32) mEq/L Anion Gap 17.9 H (5-15) BUN 29 H (7-18) mg/dL Creatinine 1.2 (0.7-1.3) mg/dL Est Cr Clr Drug Dosing 46.87 mL/min Estimated GFR (MDRD) 59 (>60) mL/min BUN/Creatinine Ratio 24.2 H (14-18) Glucose 103 (83-115) mg/dL Calcium 8.1 L (8.5-10.1) mg/dL Total Bilirubin 1.6 H (0.2-1.0) mg/dL AST 37 (15-37) U/L ALT 48 (16-63) U/L Alkaline Phosphatase 92 (46-116) U/L C-Reactive Protein 1.4 H* (<1.0) mg/dL Total Protein 5.6 L (6.4-8.2) g/dl Albumin 2.8 L (3.4-5.0) g/dl Globulin 2.8 gm/dL Albumin/Globulin Ratio 1.0 (1-2) Procalcitonin 0.10 H ng/mL TANYA Results - Last 24 hrs: Microbiology 04/02/20 19:00 Gram Stain - Final Sputum - Expectorated Sputum Culture - Preliminary 04/01/20 19:40 Aerobic Blood Culture - Preliminary Blood - Venous - Lab Draw NO GROWTH AFTER 1 DAY Anaerobic Blood Culture - Preliminary NO GROWTH AFTER 1 DAY 04/01/20 19:10 Aerobic Blood Culture - Preliminary Blood - Venous NO GROWTH AFTER 1 DAY Anaerobic Blood Culture - Final Med Orders - Current: Current Medications Acetaminophen (Tylenol) 650 mg PO Q6H PRN PRN Reason: Pain (Mild 1-3)/fever Albuterol/Ipratropium (Duoneb 3.0-0.5 Mg/3 Ml) 3 ml NEB Q4H PRN PRN Reason: Shortness Of Breath/wheezing Last Admin: 04/02/20 23:33 Dose: 3 ml Documented by: Aspirin (Halfprin) 81 mg PO DAILY [facility] Last Admin: 04/03/20 10:00 Dose: 81 mg Documented by: Benzonatate (Tessalon Perles) 100 mg PO TID PRN PRN Reason: Cough Last Admin: 04/03/20 05:22 Dose: 100 mg Documented by: Docusate Sodium (Colace) 100 mg PO BID PRN PRN Reason: Constipation Enoxaparin Sodium (Lovenox) 40 mg SUBCUT Q24H [facility] Last Admin: 04/03/20 10:00 Dose: 40 mg Documented by: Guaifenesin/Codeine Phosphate (Robitussin Ac) 5 ml PO Q6H PRN PRN Reason: Cough Last Admin: 04/03/20 05:22 Dose: 5 ml Documented by: Hydralazine HCl (Apresoline) 10 mg IVPUSH Q4H PRN PRN Reason: Hypertension Diltiazem HCl 100 mg/ Sodium (Chloride) 100 mls @ 10 mls/hr IV TITRATE [facility]; Protocol Last Titration: 04/03/20 12:40 Dose: 10 mg/hr, 10 mls/hr Documented by: Promethazine HCl 12.5 mg/ (Sodium Chloride) 50.5 mls @ 100 mls/hr IV Q6H PRN PRN Reason: Nausea/Vomiting Ceftriaxone Sodium 1 gm/ (Sodium Chloride) 100 mls @ 200 mls/hr IV Q24H [facility] Last Admin: 04/02/20 20:14 Dose: 200 mls/hr Documented by: Doxycycline Hyclate 100 mg/ (Sodium Chloride) 100 mls @ 100 mls/hr IV Q12HR [facility] Last Admin: 04/03/20 10:01 Dose: 100 mls/hr Documented by: Metoprolol Tartrate (Lopressor) 25 mg PO Q12H [facility] Last Admin: 04/03/20 13:10 Dose: 25 mg Documented by: Oxycodone HCl (Oxycodone) 5 mg PO Q4H PRN PRN Reason: Pain (moderate 4-6) Last Admin: 04/03/20 01:03 Dose: 5 mg Documented by: Simvastatin (Zocor) 10 mg PO BEDTIME [facility] Last Admin: 04/02/20 20:11 Dose: 10 mg Documented by: Sodium Chloride (Saline Flush) 10 ml FLUSH ASDIRECTED PRN PRN Reason: Keep Vein Open Last Admin: 04/01/20 17:52 Dose: 10 ml Documented by: Discontinued Medications Aspirin (Ecotrin) 325 mg PO DAILY [facility] Last Admin: 04/02/20 09:05 Dose: Not Given Documented by: Digoxin (Lanoxin) 250 mcg IVPUSH ONETIME ONE Stop: 04/02/20 09:29 Last Admin: 04/02/20 09:43 Dose: 250 mcg Documented by: Digoxin (Lanoxin) 250 mcg IVPUSH ONETIME ONE Stop: 04/02/20 15:23 Last Admin: 04/02/20 15:34 Dose: 250 mcg Documented by: Digoxin (Lanoxin) 250 mcg IVPUSH ONETIME ONE Stop: 04/03/20 10:17 Last Admin: 04/03/20 10:28 Dose: 250 mcg Documented by: Diltiazem HCl (Cardizem) Confirm Administered Dose 50 mg .ROUTE .STK-MED ONE Stop: 04/01/20 17:39 Last Admin: 04/01/20 17:52 Dose: Not Given Documented by: Diltiazem HCl (Cardizem) 10 mg IVPUSH ONETIME ONE Stop: 04/01/20 17:41 Last Admin: 04/01/20 17:42 Dose: 10 mg Documented by: Doxycycline Hyclate (Vibramycin) Confirm Administered Dose 100 mg .ROUTE .STK- MED ONE Stop: 04/03/20 09:17 Last Admin: 04/03/20 09:26 Dose: Not Given Documented by: Heparin Sodium (Porcine) (Heparin Sodium) 5,000 units SUBCUT Q8H [facility] Last Admin: 04/02/20 06:44 Dose: Not Given Documented by: Sodium Chloride (Normal Saline) 1,000 mls @ 125 mls/hr IV ASDIRECTED [facility] Last Infusion: 04/01/20 18:30 Dose: 999 mls/hr Documented by: Ceftriaxone Sodium 2 gm/ (Sodium Chloride) 100 mls @ 200 mls/hr IV ONETIME ONE Stop: 04/01/20 19:09 Last Admin: 04/01/20 19:45 Dose: 200 mls/hr Documented by: Lactated Ringer's (Ringers, Lactated) 1,000 mls @ 80 mls/hr IV ASDIRECTED [facility] Last Admin: 04/02/20 00:16 Dose: 80 mls/hr Documented by: Sodium Chloride (Normal Saline) 500 mls @ 150 mls/hr IV ONETIME ONE Stop: 04/01/20 23:32 Last Admin: 04/01/20 20:44 Dose: 150 mls/hr Documented by: Metoprolol Tartrate (Lopressor) 12.5 mg PO Q12H [facility] Last Admin: 04/02/20 08:18 Dose: 12.5 mg Documented by: Morphine Sulfate (Morphine) 2 mg IVPUSH Q4H PRN PRN Reason: Pain (severe 7-10) Stop: 04/02/20 19:41 - Exam Physical Findings Comments:: Physical Exam: General: Mild acute distress due to sob HEENT: Conjunctiva Clear, EOMI, Mucosa Moist & Jaars Neck: Supple, Trachea Midline, NO JVD Lungs: Diminished breathing sounds, normal Respiratory Effort Cardiovascular: Tachycardia, irregular irregular rhythm GI/Abdominal Exam: Normal Bowel Sounds, Soft, Non-Tender, No Organomegaly, No Distention, No Abnormal Bruit, No Mass Extremities: Normal Inspection, Non-Tender, No Pedal Edema, Normal Capillary Refill Skin: Warm, Dry, Intact Neurology: A+O x 3, no focal neurological deficits Psychiatric: Normal Mood
[2020-04-03 15:00] VITALS: BP 96/69
== END 2020-04-03 15:00 | DRG 871 ==
LOC: JD.ED 17:28 → JD.ICU 19:51
PROVIDERS: ADMIT Internal Medicine; ATTEND Internal Medicine
DX: A41.9 Sepsis, unspecified organism (principal); J96.01 Acute respiratory failure with hypoxia; J18.9 Pneumonia, unspecified organism; I25.2 Old myocardial infarction; N17.9 Acute kidney failure, unspecified; I13.0 Hypertensive heart and chronic kidney disease with heart failure and stage 1 through stage 4 chronic kidney disease, or unspecified chronic kidney disease; I48.91 Unspecified atrial fibrillation; R65.20 Severe sepsis without septic shock; I25.10 Atherosclerotic heart disease of native coronary artery without angina pectoris; D69.6 Thrombocytopenia, unspecified; N18.30 Chronic kidney disease, stage 3 unspecified; E03.9 Hypothyroidism, unspecified; I50.9 Heart failure, unspecified; R74.8 Abnormal levels of other serum enzymes; J40 Bronchitis, not specified as acute or chronic; F17.210 Nicotine dependence, cigarettes, uncomplicated; Z95.5 Presence of coronary angioplasty implant and graft; Z79.899 Other long term (current) drug therapy; Z79.82 Long term (current) use of aspirin; Z20.822 Contact with and (suspected) exposure to COVID-19
CPT/HCPCS: 0240U; 36415; 71045; 80053; 83605; 83735; 83880; 84145; 84443; 84484; 85025; 85379; 85610; 86140; 87040; 87070; 87205; 87641; 93005; 93306; 94640; 97162; 97165; 93010; 96365; 96366; 99223; 99233; 99239; 99284; 99285-25; A9270-GY; J0696; J1160; J1644; J1650; J3490; J7030; J7120; J7620-GY

== ENCOUNTER 2021-07-04 09:03 | Emergency (ER) | payer MEDICARE ==
[2021-07-04 09:13] VITALS: BP 132/78; PULSE 88
== END 2021-07-04 11:23 | disposition home or self-care (01) ==
LOC: JD.ED 09:03
DX: M54.50 Low back pain, unspecified (principal); I25.10 Atherosclerotic heart disease of native coronary artery without angina pectoris; I25.2 Old myocardial infarction; F17.210 Nicotine dependence, cigarettes, uncomplicated; Z79.899 Other long term (current) drug therapy; Z79.82 Long term (current) use of aspirin
CPT/HCPCS: 72100; 72100-26; 99283-25

== ENCOUNTER 2021-09-12 07:14 | Emergency (ER) | payer MEDICARE ==
[2021-09-12] MEDS ORDERED: Aspirin 81 MG Tab.Chew PO ONE (07:55)
[2021-09-12] MEDS ORDERED: Heparin Sodium 5,000 Units/ML Vial IVPUSH ONE (09:10)
[2021-09-12] MEDS ORDERED: Heparin Sodium/D5W 25,000 UNITS/500 ML BAG IV SCH (09:15)
[2021-09-12] MEDS ORDERED: Nitroglycerin/D5W 25 MG/250 ML BOTTLE IV SCH (09:15)
[2021-09-12] MEDS ORDERED: Metoprolol Tartrate 25 MG Tab PO ONE ×2 (09:16→09:45)
[2021-09-12] MEDS ORDERED: atorvaSTATin 40 MG Tab PO ONE ×2 (09:18→09:45)
[2021-09-12 09:50] VITALS: BP 115/79; PULSE 92
== END 2021-09-12 14:08 ==
LOC: SUPCPDRO 07:14 → JD.ED 07:14
DX: I21.4 Non-ST elevation (NSTEMI) myocardial infarction (principal); Z28.310 Unvaccinated for COVID-19; Z20.822 Contact with and (suspected) exposure to COVID-19
CPT/HCPCS: 36415; 71045; 80053; 83605; 84484; 85025; 85610; 85730; 87040; 93005; 96365; 96366; 96368; 96376; 99285; A9270; J1644; J3490; U0002; 93010

== ENCOUNTER 2022-07-18 12:39 | Emergency (ER) | payer MEDICARE ==
[2022-07-18] MEDS ORDERED: Sodium Chloride 0.9% 1,000 ML IV STA (13:36)
[2022-07-18] MEDS ORDERED: Sodium Chloride 0.9% 10 ML Syringe FLUSH PRN ×2 (13:36→13:41)
[2022-07-18] MEDS ORDERED: Ondansetron 4 MG/2 ML SDV IVPUSH ONE (13:37)
[2022-07-18] MEDS ORDERED: HYDROmorphone 0.5 MG/0.5 ML Syringe IVPUSH ONE (13:38)
[2022-07-18] MEDS ORDERED: Iopamidol 612 MG/ML 100 ML Bottle IVPUSH ONE (13:41)
[2022-07-18 13:53] LABS: A/G RATIO 0.6 (1-2); ALANINE AMINOTRANSFERASE,ALT 14 U/L (16-63); ALBUMIN 2.3 g/dl (3.4-5.0); ALKALINE PHOSPHATASE 105 U/L (46-116); ANION GAP 17.2 (5-15); ASPARTATE AMNIOTRANSFERASE,AST 28 U/L (15-37); BILIRUBIN TOTAL 0.6 mg/dL (0.2-1.0); BLOOD UREA NITROGEN,BUN 47 mg/dL (7-18); BUN/CREATININE RATIO 17.4 (14-18); CARBON DIOXIDE,CO2 22 mEq/L (21-32); CHLORIDE,CL 102 mEq/L (98-107); CREATININE 2.7 mg/dL (0.7-1.3); ESTIMATED GFR 23 mL/min (>60); GLUCOSE RANDOM 117 mg/dL (70-99); LIPASE 41 U/L (73-393); POTASSIUM,K 4.2 mEq/L (3.5-5.1); PROTEIN TOTAL,TP 6.2 g/dl (6.4-8.2); SODIUM,NA 137 mEq/L (136-145)
[2022-07-18 14:36] LABS: MEAN CORPUSCULAR HEMOGLOBIN 27.6 pg (25.7-32.2); MEAN CORPUSCULAR HGB CONC 29.1 g/dl (32.2-35.5); MEAN CORPUSCULAR VOLUME 94.8 fl (79.0-92.2); PLATELET COUNT,PLT 34 K/mm3 (163-337); RED BLOOD CELL COUNT 2.32 M/mm3 (4.63-6.08)
[2022-07-18 14:37] LABS: HEMOGLOBIN 6.4 gm/dl (13.7-17.5); WHITE BLOOD CELL COUNT,WBC 132.66 K/mm3 (4.23-9.07)
[2022-07-18 14:50] LABS: BAND PERCENT MAN 20 % (0-10); BASOPHILS PERCENT MAN 0 (0.2-1.2); BLASTS PERCENT MAN 52; EOSINOPHILS PERCENT MAN 0 % (0.8-7.0); LYMPHOCYTES % ATYPICAL MANUAL 0 %; LYMPHOCYTES PERCENT MAN 9 % (20-40); METAMYELOCYTE PERCENT MAN 2; MONOCYTES PERCENT MAN 3 % (2-10); MYELOCYTE PERCENT MAN 11; PROMYELOCYTE PERCENT MAN 3
[2022-07-18 14:59] LABS: ANISOCYTOSIS 2+ MODERATE; HYPOCHROMASIA 2+ MODERATE; POLYCHROMASIA 1+ SLIGHT
[2022-07-18 15:00] LABS: ACANTHOCYTES 1+ SLIGHT; PLATELET COUNT ESTIMATE MARKED DEC
[2022-07-18 15:50] LABS: PROTHROMBIN TIME > 90.0 SECONDS (9.7-12.0)
[2022-07-18] MEDS ORDERED: Factor IX Complex Human 500 UNIT VIAL IV ONE (16:24)
[2022-07-18] MEDS ORDERED: Sodium Chloride 0.9% 1,000 ML IV SCH ×2 (17:30→17:45)
[2022-07-18 18:44] LABS: CORONAVIRUS COVID-19 NAA NEGATIVE (NEGATIVE); INFLUENZA A NAA NEGATIVE (NEGATIVE); RESPIRATORY SYNCYTIAL VIR NAA NEGATIVE (NEGATIVE)
[2022-07-18 21:17] VITALS: BP 104/53; PULSE 75
[2022-07-22 08:46] LABS: HYPOCHRO 3+ /hpf; NEUTROPHILS% 8 %; TOXIC GRAN Seen (Absent)
== END 2022-07-18 20:44 ==
LOC: JD.ED 12:39
DX: D72.829 Elevated white blood cell count, unspecified (principal); D69.6 Thrombocytopenia, unspecified; N28.9 Disorder of kidney and ureter, unspecified; I25.10 Atherosclerotic heart disease of native coronary artery without angina pectoris; I25.2 Old myocardial infarction; Z79.01 Long term (current) use of anticoagulants; Z79.02 Long term (current) use of antithrombotics/antiplatelets; Z79.899 Other long term (current) drug therapy; Z20.822 Contact with and (suspected) exposure to COVID-19
CPT/HCPCS: 0241U; 36415; 36430; 74176; 80053; 83690; 85007; 85027; 85610; 86850; 86900; 86901; 86922; 96361; 96365; 96372; 96375; 99285; J1170; J2405; J3490; J7030; J7168; P9016